=== PATIENT | male | born 1935 | race African-American/Black ===

== ENCOUNTER 2019-02-07 11:08 | Inpatient (IN) | payer MEDICARE, OTHER ==
[~2019-02-07] VITALS: Ht 177.8 cm; Wt 67.4 kg
[2019-02-07] MEDS ORDERED: PIPERACILLIN-TAZOB 3.375GM 100 ML IV ONE (12:30)
[2019-02-07 12:38] LABS: Hematocrit 47.4 % (41.0-53.0); Hemoglobin 15.4 g/dL (13.5-17.5); Mean Corpuscular Hemoglobin 29.3 pg (28.0-32.0); Mean Corpuscular Hgb Conc. 32.5 g/dL (32.0-36.0); Mean Corpuscular Volume 90.2 fL (80.0-100.0); Platelet Count (auto) 277 10^3/uL (140-450); Red Blood Cells 5.26 10^6/uL (4.5-5.90); Red Cell Distribution Width 17.7 % (11.8-14.3); White Blood Cell 5.9 10^3/uL (4.4-10.8)
[2019-02-07 12:42] LABS: Band Neutrophils % (manual) 0; Basophils % (manual) 0 (0.0-2.0); Blast Cells 0; Metamyelocytes % 0; Myelocytes % 0; Promyelocytes % 0; Reactive Lymphocytes 0
[2019-02-07 12:50] LABS: Urine Bacteria NONE SEEN /hpf (None Seen); Urine Blood Negative /uL (Negative); Urine Specific Gravity 1.017 (1.001-1.035); Urine WBC 1 /hpf (0 - 3)
[2019-02-07 13:00] LABS: Albumin 2.1 g/dL (3.4-5.0); Anion Gap 11 (5-15); BUN/Creatinine Ratio 12.9; Blood Urea Nitrogen 13 mg/dL (7-18); Carbon Dioxide 24 mmol/L (21-32); Chloride 104 mmol/L (98-107); GFR African American 91 mL/min; GFR Non-African American 75 mL/min; Glucose 109 mg/dL (74-106); Potassium 3.6 mmol/L (3.5-5.1); Sodium 139 mmol/L (136-145)
[2019-02-07] MEDS ORDERED: TEMAZEPAM 15 MG CAP PO PRN (13:00)
[2019-02-07] MEDS ORDERED: ALBUTEROL SULF 2.5 MG/0.5ML(0.5%) NEB SOLN NEB PRN (13:00)
[2019-02-07] MEDS ORDERED: traMADol HCL 50 MG TAB PO PRN (13:00)
[2019-02-07] MEDS ORDERED: ONDANSETRON HCL 4 MG/2 ML VIAL IV PRN (13:00)
[2019-02-07] MEDS ORDERED: LACTULOSE 20Gm/30ML SOLN PO PRN (13:00)
[2019-02-07] MEDS ORDERED: NITROGLYCERIN 0.4 MG SL TAB SL PRN (13:00)
[2019-02-07] MEDS ORDERED: MORPHINE SULF INJ 2 MG/ML SYRINGE 1ML IV PRN (13:00)
[2019-02-07] MEDS ORDERED: SODIUM CHLORIDE 0.9% 1,000 ML IV ONE (13:00)
[2019-02-07] MEDS ORDERED: ACETAMINOPHEN 500 MG TAB PO PRN (13:00)
[2019-02-07 13:03] LABS: Alanine Aminotransferase 36 U/L (16-61); Alkaline Phosphatase 81 U/L (45-117); Aspartate Aminotransferase 66 U/L (15-37); Bilirubin, Total 0.6 mg/dL (0.2-1.0); Total Protein 7.2 g/dL (6.4-8.2)
[2019-02-07 13:26] LABS: Magnesium 2.1 mg/dL (1.6-2.6)
[2019-02-07] MEDS ORDERED: IOHEXOL 300 MG/ML 100ML BOTTLE IJ ONE (13:44)
--- NOTE | 2019-02-07 13:45 | NUR ---
RECEIVED REPORT FROM JUAN WILDE.
[2019-02-07 13:54] VITALS: BP 97/52
[2019-02-07] MEDS ORDERED: AZITHROMYCIN 500MG/ 250ML 250 ML IV SCH (14:00)
[2019-02-07 14:27] LABS: Eosinophils % (manual) 1 (0-7); Lymphocytes % (manual) 17 (10.0-50.0); Monocytes % (manual) 18 (0-12)
[2019-02-07 17:59] VITALS: BP 143/74
[2019-02-07] MEDS: ALBUTEROL SULF 2.5 MG/0.5ML(0.5%) NEB SOLN NEB SCH (18:00)
[2019-02-07] MEDS: IPRATROPIUM BROM 0.5 MG/2.5ML INH SOL NEB SCH (18:00)
[2019-02-07] MEDS ORDERED: cefTRIAXone 1GM/50ML D5W 50 ML IV SCH (18:00)
[2019-02-07 18:05] VITALS: BP 143/74
--- NOTE | 2019-02-07 19:30 | NUR ---
Opening Shift Note Assumed care of patient, awake and alert. No S/S of distress/SOB or pain. Instructed on POC and to call for assist PRN, will continue to monitor for changes Q1hr and PRN. Bed locked and in lowest position, call light within reach.
--- NOTE | 2019-02-07 20:45 | NUR ---
SPUTUM CX SENT to lab
[2019-02-07 22:00] VITALS: BP 152/80
[2019-02-07] MEDS ORDERED: CEFEPIME HYDROCHLORIDE 2 GM in D5W 5% 50 ML IV SCH (22:00)
[2019-02-07 22:41] VITALS: BP 149/77
[2019-02-08] VITALS (8 sets, daily range): BP systolic 134–155; BP diastolic 61–78
[2019-02-08] MEDS: ALBUTEROL SULF 2.5 MG/0.5ML(0.5%) NEB SOLN NEB SCH ×4 (00:30→19:13)
[2019-02-08] MEDS: IPRATROPIUM BROM 0.5 MG/2.5ML INH SOL NEB SCH ×4 (00:30→19:13)
--- NOTE | 2019-02-08 03:56 | NUR ---
STOOL SAMPLE SENT TO LAB
--- NOTE | 2019-02-08 06:57 | NUR ---
CLOSING NOTE PT awake no s/sx's of distress or sob noted, pt on 2 L nc will endorse report to day RN
--- NOTE | 2019-02-08 07:30 | NUR ---
Opening Shift Note RECEIVED REPORT FROM NOC RN. Assumed care of patient, awake and alert. PATIENT ON OXYGEN AT 2 LPM VIA NASAL CANNULA WITH no S/S of distress/SOB or pain. BED IN LOWEST, LOCKED POSITION WITH SIDERAILS UP x2. Instructed on POC and to call for assist PRN, will continue to monitor for changes Q1hr and PRN.
[2019-02-08] MEDS: SODIUM CHLORIDE 0.9% 1,000 ML IV SCH ×2 (09:00→19:16)
[2019-02-08] MEDS: LEVOFLOXACIN 750MG 150 ML IV SCH (09:38)
[2019-02-08] MEDS: ENOXAPARIN SOD 40 MG/0.4 ML SYRINGE SC SCH (09:38)
--- NOTE | 2019-02-08 10:49 | NUR ---
DR. KEARNS AT BEDSIDE.
[2019-02-08] MEDS: CEFEPIME HYDROCHLORIDE 2 GM in D5W 5% 50 ML IV SCH ×2 (11:26→23:49)
--- NOTE | 2019-02-08 12:05 | NUR ---
WOUND CARE NOTE: Wound care in to see patient per wound care request regarding "lower back and sacral ..." wounds. Patient is 83 years old male with admitting diagnosis of Pneumonia. He has history of A Fib and Htn. Patient is resting in bed in Rm. 218B. He's awake, alert and oriented. Patient is in no stated pain at this time. He's ambulatory and self turn and reposition. His Ruben score is 21. Skin/wound assessment done with the assistance of patient's nurse, JUAN Fry. No open wound noted other than tiny dry scabbed lesions to lower back, area is clean and dry, asymptomatic, left open to air. No pressure injury issue noted. Patient tolerated well. Bed in low position, call braxton on hand, all safety precautions in placed. No further wound care monitoring needed at this time Addendum: 02/08/19 at 1559 by Kaye Hollis RN Amended: Links added.
--- NOTE | 2019-02-08 19:15 | NUR ---
Opening Shift Note Assumed care of patient, awake and alert. No S/S of distress/SOB or pain. Instructed on POC and to call for assist PRN, will continue to monitor for changes Q1hr and PRN.
[2019-02-09] MEDS: IPRATROPIUM BROM 0.5 MG/2.5ML INH SOL NEB SCH ×4 (00:04→18:31)
[2019-02-09] MEDS: ALBUTEROL SULF 2.5 MG/0.5ML(0.5%) NEB SOLN NEB SCH ×4 (00:05→18:32)
[2019-02-09 05:00] VITALS: BP 149/83
[2019-02-09] MEDS: SODIUM CHLORIDE 0.9% 1,000 ML IV SCH ×2 (05:09→15:42)
--- NOTE | 2019-02-09 06:37 | NUR ---
ROUNDS PATIENT UP TO THE RESTROOM. GAIT STEADY, DENIES ANY PAIN OR DISCOMFORT.
--- NOTE | 2019-02-09 07:58 | NUR ---
Opening Shift Note Assumed care of patient, awake and alert, sitting up in bed. No S/S of distress/SOB or pain. Instructed on POC and to call for assist PRN, will continue to monitor for changes Q1hr and PRN.
[2019-02-09 09:00] VITALS: BP 158/76
[2019-02-09] MEDS: LEVOFLOXACIN 750MG 150 ML IV SCH (09:18)
[2019-02-09] MEDS: ENOXAPARIN SOD 40 MG/0.4 ML SYRINGE SC SCH (09:18)
--- NOTE | 2019-02-09 10:25 | NUR ---
Rounding Dr. Genao at bedside.
[2019-02-09] MEDS: CEFEPIME HYDROCHLORIDE 2 GM in D5W 5% 50 ML IV SCH (12:13)
[2019-02-09 13:00] VITALS: BP 147/72
--- NOTE | 2019-02-09 15:29 | NUR ---
Spouse at bedside.
[2019-02-09] MEDS ORDERED: AMLO5TAB13 PO (15:51)
--- NOTE | 2019-02-09 15:58 | NUR ---
Home Medications Medication reconciliation completed. Telephone order received from MD, read back and verified. EMAR updated.
--- NOTE | 2019-02-09 19:10 | NUR ---
Opening Shift Note Received report from day shift RN Theodora, assumed care of patient. Patient awake and alert eating dinner with Gloria at bed side. Denies any distress/SOB or pain. Instructed on POC and to call for assist PRN, will continue to monitor for changes Q1hr and PRN.
[2019-02-09 22:00] VITALS: BP 144/75
[2019-02-09] MEDS: amLODIPine BESYLATE 5 MG TAB PO SCH (22:18)
[2019-02-09 23:30] VITALS: BP 141/84
[2019-02-10] MEDS: ALBUTEROL SULF 2.5 MG/0.5ML(0.5%) NEB SOLN NEB SCH ×4 (00:14→18:52)
[2019-02-10] MEDS: IPRATROPIUM BROM 0.5 MG/2.5ML INH SOL NEB SCH ×4 (00:14→18:52)
[2019-02-10] MEDS: SODIUM CHLORIDE 0.9% 1,000 ML IV SCH ×2 (01:00→12:19)
[2019-02-10 05:00] VITALS: BP 150/71
--- NOTE | 2019-02-10 05:54 | NUR ---
ROUNDS PATIENT AWAKE AND ALERT SITTING UP TO BED SIDE COMMODE, MINIMUM ASSISTANCE NEEDED. DENIES ANY PAIN OR DISCOMFORT. WILL CONTINUE TO MONITOR.
--- NOTE | 2019-02-10 07:20 | NUR ---
Opening Shift Note Assumed care of patient, awake and alert. No S/S of distress/SOB or pain. Instructed on POC and to call for assist PRN, will continue to monitor for changes Q1hr and PRN. Patient to have stress test today.
[2019-02-10 08:00] VITALS: BP 140/77
[2019-02-10] MEDS ORDERED: ADENOSINE 59 MG in GIVE UN-DILUTED 0 ML IV STA (08:35)
[2019-02-10] MEDS: LEVOFLOXACIN 750MG 150 ML IV SCH (09:07)
[2019-02-10] MEDS: ENOXAPARIN SOD 40 MG/0.4 ML SYRINGE SC SCH (09:07)
[2019-02-10 09:22] VITALS: BP 150/71
--- NOTE | 2019-02-10 09:50 | NUR ---
Spouse at bedside.
--- NOTE | 2019-02-10 10:26 | NUR ---
Rounding Dr. Genao at bedside.
[2019-02-10 12:00] VITALS: BP 137/71
[2019-02-10] MEDS: CEFEPIME HYDROCHLORIDE 2 GM in D5W 5% 50 ML IV SCH ×4 (12:19→23:13)
--- NOTE | 2019-02-10 14:36 | NUR ---
Nutrition Assessment/consult Notes please see attached link for complete assessment Est. Needs BW [id number] kcal (25-30kcal/kgBW), 70-91 gms pro (1.0-1.3 gms/kgBW r/t mod hypoalbuminemia). Will continue to monitor pertinent labs and reassess nutrient need prn. Addendum: 02/10/19 at [address] Amended: Links added.
[2019-02-10 15:43] VITALS: BP 167/79
[2019-02-10] MEDS: amLODIPine BESYLATE 5 MG TAB PO SCH (21:21)
[2019-02-10 22:20] VITALS: BP 136/66
[2019-02-11] MEDS: IPRATROPIUM BROM 0.5 MG/2.5ML INH SOL NEB SCH ×4 (00:33→19:08)
[2019-02-11] MEDS: ALBUTEROL SULF 2.5 MG/0.5ML(0.5%) NEB SOLN NEB SCH ×4 (00:33→19:08)
[2019-02-11 05:35] VITALS: BP 138/72
--- NOTE | 2019-02-11 07:23 | NUR ---
Report given to Yovanny Yip to assume care, patient is resting no distress.
[2019-02-11 09:00] VITALS: BP 141/76
[2019-02-11] MEDS: LEVOFLOXACIN 750MG 150 ML IV SCH (10:11)
[2019-02-11] MEDS: ENOXAPARIN SOD 40 MG/0.4 ML SYRINGE SC SCH (10:11)
--- NOTE | 2019-02-11 10:30 | NUR ---
Phone call received from GIOVANI stating that patient has 2nd run of V-tach. notified and EKG ordered.
[2019-02-11 13:02] VITALS: BP 100/53
[2019-02-11 14:42] VITALS: BP 100/53
[2019-02-11] MEDS: CEFEPIME HYDROCHLORIDE 2 GM in D5W 5% 50 ML IV SCH ×2 (15:42→23:45)
--- NOTE | 2019-02-11 16:50 | NUR ---
Discharge Phone call received from Dr. Genao to hold patients discharge for today.
[2019-02-11 17:00] VITALS: BP 142/76
--- NOTE | 2019-02-11 17:04 | NUR ---
assessment Patient is a 83 year old male who is alert and oriented. Prior to admission patient lived home with his and functioned independently until recently after a trip over seas. Patients PCP is Dr Genao. Patient may need a home health for PT on discharge. Patient and Gloria agree to discharge plan home on discharge. Addendum: 02/11/19 at 1706 by Raegan JIMENES Amended: Links added.
--- NOTE | 2019-02-11 17:10 | NUR ---
Discharge Prescription Prescription filled by [facility] and picked up by the patient's .
--- NOTE | 2019-02-11 17:15 | NUR ---
Rex Genao at bedside. NPO after midnight, heart cath 02/12
--- NOTE | 2019-02-11 19:35 | NUR ---
OPENING NOTE REPORT RECEIVED FROM DAY SHIFT RN PATIENT IS A/OX4 RESTING IN BED, NO S/S OF DISTRESS. D/C HELD FOR TODAY, PENDING HEART CATH TOMORROW, PATIENT AWARE OF THAT. POC DISCUSSED, CALL LIGHT WITHIN REACH.
[2019-02-11 21:51] VITALS: BP 135/71
[2019-02-11] MEDS: amLODIPine BESYLATE 5 MG TAB PO SCH (21:53)
[2019-02-12] MEDS: IPRATROPIUM BROM 0.5 MG/2.5ML INH SOL NEB SCH ×4 (00:24→19:47)
[2019-02-12] MEDS: ALBUTEROL SULF 2.5 MG/0.5ML(0.5%) NEB SOLN NEB SCH ×4 (00:24→19:47)
[2019-02-12 05:26] VITALS: BP 140/75
--- NOTE | 2019-02-12 06:36 | NUR ---
CHECKLIST DONE FOR POSSIBLE HEART CATH TODAY PLACED IN HARD CHART
--- NOTE | 2019-02-12 06:36 | NUR ---
CONSENTS CONSENTS FOR HEART CATH NOT SIGNED AT THIS TIME. PATIENT STATES PROCEDURE WAS NOT EXPLAINED BY DOCTOR AND THAT HE HAS "MANY QUESTIONS" ABOUT THE PROCEDURE CONSENTS PRINTED AND PLACED IN HARD CHART MD TO GO OVER PROCEDURE WITH PATIENT BEFORE ANYTHING IS SIGNED
--- NOTE | 2019-02-12 06:57 | NUR ---
CLOSING NOTE PATIENT IS RESTING COMFORTABLY IN BED WATCHING TV. NO S/S OF DISTRESS NOTED PT NPO FOR PENDING HEART CATH TODAY. WILL ENDORSE CARE TO AM SHIFT RN CALL LIGHT WITHIN REACH
[2019-02-12 07:05] LABS: Hematocrit 50.4 % (41.0-53.0); Hemoglobin 16.6 g/dL (13.5-17.5); Mean Corpuscular Hemoglobin 29.8 pg (28.0-32.0); Mean Corpuscular Volume 90.3 fL (80.0-100.0); Platelet Count (auto) 243 10^3/uL (140-450); Red Blood Cells 5.59 10^6/uL (4.5-5.90); Red Cell Distribution Width 17.5 % (11.8-14.3)
[2019-02-12 07:14] LABS: Band Neutrophils % (manual) 0; Basophils % (manual) 0 (0.0-2.0); Blast Cells 0; Metamyelocytes % 0; Myelocytes % 0; Promyelocytes % 0; Reactive Lymphocytes 0
[2019-02-12 07:18] LABS: BUN/Creatinine Ratio 11.1; Calcium 8.9 mg/dL (8.5-10.1)
[2019-02-12 07:25] LABS: INR 1.15 (0.9-1.15); Partial Thromboplastin Time 30.8 sec (23.64-32.05)
[2019-02-12 07:52] LABS: Eosinophils % (manual) 1 (0-7); Lymphocytes % (manual) 29 (10.0-50.0); Monocytes % (manual) 19 (0-12)
--- NOTE | 2019-02-12 08:00 | NUR ---
Opening Shift Note Assumed care of patient, awake, alert and oriented X4. No S/S of distress/SOB or pain. Tele# 27, sinus bradycardia @ 58 bpm. IV to left antecubital, 22 gauge, patent and saline locked. Instructed on POC and to call for assist PRN, verbalized understanding. Bed locked, in lowest position, call light within reach, will continue to monitor for changes Q1hr and PRN.
[2019-02-12] MEDS ORDERED: SODIUM CHLORIDE 0.9% 1,000 ML IV SCH (08:25)
[2019-02-12 09:00] VITALS: BP 131/68
[2019-02-12 09:06] LABS: Hematocrit 47.2 % (41.0-53.0); Hemoglobin 15.7 g/dL (13.5-17.5); Mean Corpuscular Hgb Conc. 33.2 g/dL (32.0-36.0); Mean Corpuscular Volume 90.3 fL (80.0-100.0); Platelet Count (auto) 247 10^3/uL (140-450); Red Blood Cells 5.23 10^6/uL (4.5-5.90); Red Cell Distribution Width 17.7 % (11.8-14.3); White Blood Cell 5.1 10^3/uL (4.4-10.8)
[2019-02-12 09:10] LABS: Band Neutrophils % (manual) 0; Basophils % (manual) 0 (0.0-2.0); Blast Cells 0; Metamyelocytes % 0; Myelocytes % 0; Promyelocytes % 0; Reactive Lymphocytes 0
[2019-02-12 09:24] LABS: INR 1.13 (0.9-1.15); Partial Thromboplastin Time 30.3 sec (23.64-32.05)
[2019-02-12 09:59] LABS: Calcium 8.9 mg/dL (8.5-10.1); Potassium 4.5 mmol/L (3.5-5.1)
[2019-02-12] MEDS: ENOXAPARIN SOD 40 MG/0.4 ML SYRINGE SC SCH (10:00)
[2019-02-12] MEDS: LEVOFLOXACIN 750MG 150 ML IV SCH (10:00)
[2019-02-12 10:01] LABS: BUN/Creatinine Ratio 11.4
[2019-02-12 10:03] LABS: Eosinophils % (manual) 5 (0-7); Lymphocytes % (manual) 26 (10.0-50.0); Monocytes % (manual) 22 (0-12)
--- NOTE | 2019-02-12 10:15 | NUR ---
INSPECTOR MACHINE PARTS Patient taken to clinical lab technologist via bed for procedure, no distress noted upon departure.
[2019-02-12] MEDS: CEFEPIME HYDROCHLORIDE 2 GM in D5W 5% 50 ML IV SCH ×2 (12:00→23:59)
--- NOTE | 2019-02-12 12:30 | NUR ---
Pt not in room during noon vitals. Unable to obtain .
[2019-02-12] MEDS ORDERED: LIDOCAINE 2%HCL (LOCAL ANESTH.) INJ 20ML MDV ONE (12:46)
[2019-02-12] MEDS ORDERED: ANGIOMAX 250 MG VIAL IV ONE (12:57)
[2019-02-12] MEDS ORDERED: SODIUM CHL 0.9% 50 ML ONE (12:57)
[2019-02-12] MEDS ORDERED: fentaNYL CITRATE 100 MCG/2 ML VL ONE (12:57)
[2019-02-12] MEDS ORDERED: MIDAZOLAM HCL 1MG/1ML-2 ML VIAL ONE (12:57)
[2019-02-12] MEDS ORDERED: IOHEXOL 350 MG/ML 100ML IJ ONE (13:30)
[2019-02-12] MEDS ORDERED: ATROPINE SULFATE 1 MG/1 ML VIAL ONE (14:06)
[2019-02-12] MEDS ORDERED: ASPirin 325 MG TAB ONE (14:12)
[2019-02-12] MEDS ORDERED: TICAGRELOR 90 MG TAB ONE (14:12)
[2019-02-12] MEDS ORDERED: NITROGLYCERIN 0.4MG/DOSE SPRAY 4.9GM ONE (14:43)
--- NOTE | 2019-02-12 15:47 | NUR ---
Patient returned from [employer] Referee via bed, s/p L and R heart cath. Right groin access with dressing clean, dry and intact, soft to palpitation, distal pulse strong and regular. Patient has no complaints of pain or discomfort at this time. at bedside updated on plan of care, verbalized understanding.
[2019-02-12 17:00] VITALS: BP 157/84
--- NOTE | 2019-02-12 18:02 | NUR ---
Patient complaining of lower abdominal pain and inability to empty his bladder. 20 ml of clear yellow urine noted in the urinal within 1 hour. Per bladder scanner, patient has 200 ml urine in bladder. Paged Dr Genao and Urologist telecommunications equipment installer to notify. Awaiting return call. Patient medicated with Ultram per PRN order, will continue to monitor.
[2019-02-12] MEDS ORDERED: TAMSULOSIN HYDROCHLORIDE 0.4 MG CAP PO ONE (18:15)
[2019-02-12] MEDS ORDERED: LIDOCAINE HCL 2% TOP JELLY 5ML TOP ONE (18:15)
--- NOTE | 2019-02-12 18:15 | NUR ---
Primitivo Valenzuela, SUDARSHAN and Dr Fry with Urology returned call. Notified of patients inability to empty bladder, new orders received and followed through. Patient and at bedside updated on plan of care, verbalized understanding. Awaiting materials management to bring 18 G Coude catheter.
--- NOTE | 2019-02-12 18:50 | NUR ---
Silver catheter insertion Patient assessed and determined to be in need of Silver catheter. Order obtained from Dr Ang MD. Patient educated on catheter and reason for insertion. All questions answered. Silver catheter 18 gauge Malay Coude catheter inserted with clean sterile technique. Patient tolerated well. 150 ml of clear, yellow urine drained immediately. Patient verbalizing decrease in abdominal discomfort immediately.
--- NOTE | 2019-02-12 19:25 | NUR ---
Care endorsed to JUAN Lucas, night nurse.
--- NOTE | 2019-02-12 20:12 | NUR ---
Emptied out 1150 mls of yellow urine from recio catheter. Patient does not report any new pain in his lower abdomen. Bladder is no longer distended. Will continue to monitor.
--- NOTE | 2019-02-12 21:12 | NUR ---
Patient has had increased bleeding from cath site. Moderate-large amount of blood noted to have soaked into gauze dressing. Manual pressure applied for 20 minutes. Bleeding noted to have stopped. No further soiling of dressing with blood. Patient reports no pain in his chest or in the right lower extremity. Pulses good and strong below cath site. Skin warm to touch. Vitals are all WNL. Will continue to monitor. Addendum: 02/13/19 at 0602 by JUSTIN RICHARDSON RN Approximately 60% of gauze is now soiled in blood. Drainage circled.
[2019-02-12] MEDS: TICAGRELOR 90 MG TAB PO SCH (21:47)
[2019-02-12] MEDS: amLODIPine BESYLATE 5 MG TAB PO SCH (21:48)
[2019-02-12 22:00] VITALS: BP 124/70
--- NOTE | 2019-02-12 22:42 | NUR ---
Only scant new blood noted around cath site. Patient reports no symptoms. Pulses strong below site. Extremity warm to touch. Will continue to monitor.
--- NOTE | 2019-02-13 00:20 | NUR ---
Respiratory note: RN AT BEDSIDE WITH PATIENT AT THIS TIME. PT STATED HE FELT OK AND DIDN'T NEED A BREATHING TREATMENT AT THIS TIME. PT RESTING COMFORTABLY IN BED. NO RESPIRATORY DISTRESS NOTED. RN WILL PAGE IF PT NEEDS A MED NEB TX. WILL CONTINUE TO MONITOR.
--- NOTE | 2019-02-13 00:42 | NUR ---
At approximately 0000, I came in to assess the patient and discovered that the dressing surrounding the patient's heart cath site was completely soiled in blood. Charge nurse Jania helped me change the dressing. Jania and I traded placing pressure on the site for 30 minutes. A small raised lump was noticed on the right side of the incision site. Pressure was placed there as well. Small bleeding noted from site while providing pressure. Vitals: BP: 124/65 with MAP of 87, HR: 65, RR: 19, O2 saturation: 98% on RA, Temp: 98.7. Patient reports no chest pain or pain at site. Pulses strong in dorsalis pedis of affected leg. Ice packs placed over site after providing pressure. Will monitor in one hour.
--- NOTE | 2019-02-13 01:30 | NUR ---
Approximately 40% of the new gauze has been saturated with blood. Drainage circled. Pressure reapplied for 10 minutes. Will continue to monitor.
--- NOTE | 2019-02-13 02:42 | NUR ---
Dressing is saturated 55%. Will continue to monitor.
--- NOTE | 2019-02-13 04:12 | NUR ---
No new bleeding from site noted at this time.
[2019-02-13 05:28] VITALS: BP 127/64
--- NOTE | 2019-02-13 05:53 | NUR ---
Site began bleeding again. Dressing changed once more after becoming nearly completely soiled with blood. Gauze placed over site and covered with tegaderm. Direct pressure applied for 30 minutes. Current vitals: BP: 127/64, HR: 71, RR: 20, O2 saturation: 99% on 2 l/min NC. Site is currently clean, dry, and intact after applying direct pressure. Patient states he is asymptomatic. Lower extremity distal to site is warm and normal color with strong pulses in the dorsalis pedis. Called and left a message for on-call over short and damage clerk, Dr. Carpenter. Awaiting call back.
[2019-02-13 06:45] LABS: Basophils # (auto) 0 uL; Basophils % (auto) 0.4 % (0.0-2.0); Eosinophils # (auto) 0.1 uL; Eosinophils % (auto) 1.2 % (0.0-7.0); Hematocrit 46.6 % (41.0-53.0); Hemoglobin 15.5 g/dL (13.5-17.5); Lymphocytes # (auto) 1.1 uL; Lymphocytes % (auto) 17.7 % (10.0-50.0); Mean Corpuscular Hemoglobin 29.9 pg (28.0-32.0); Mean Corpuscular Hgb Conc. 33.4 g/dL (32.0-36.0); Mean Corpuscular Volume 89.5 fL (80.0-100.0); Monocytes % (auto) 15.7 % (0.0-12.0); Nucleated Red Blood Cells % 0.1 %; Platelet Count (auto) 229 10^3/uL (140-450); Red Cell Distribution Width 17.4 % (11.8-14.3); White Blood Cell 6.1 10^3/uL (4.4-10.8)
[2019-02-13] MEDS: IPRATROPIUM BROM 0.5 MG/2.5ML INH SOL NEB SCH ×4 (06:55→19:15)
[2019-02-13] MEDS: ALBUTEROL SULF 2.5 MG/0.5ML(0.5%) NEB SOLN NEB SCH ×4 (06:55→19:15)
[2019-02-13 07:00] LABS: Potassium 4.2 mmol/L (3.5-5.1)
[2019-02-13 07:25] LABS: BUN/Creatinine Ratio 15.3
[2019-02-13 08:23] VITALS: BP 127/64
[2019-02-13 09:11] VITALS: BP 132/71
[2019-02-13] MEDS: LEVOFLOXACIN 750MG 150 ML IV SCH (09:24)
[2019-02-13] MEDS: TICAGRELOR 90 MG TAB PO SCH ×2 (09:25→22:00)
[2019-02-13] MEDS: ASPirin 81 mg TAB PO SCH (09:25)
--- NOTE | 2019-02-13 11:44 | NUR ---
PT SEEN BY DR. URMILA KEARNS MADE AWARE PT'S RIGHT GROIN INCISION WAS BLEEDING AND BRIDGE PAINTER HELPER NURSE CHANGED THE DRESSING 4X. DR. KEARNS ORDERED TO CHANGE THE DRESSING AND MONITOR. PER DR. KEARNS PT CAN GO HOME TODAY WITH GARCIA CATHETER.
--- NOTE | 2019-02-13 12:40 | NUR ---
POST OP DRESSING ON RIGHT GROIN IS BLEEDING, DRESSING CHANGED, DR. KEARNS AT BEDSIDE AND ORDERED TO MONITOR FOR AN HOUR.
[2019-02-13 13:02] VITALS: BP 112/73
--- NOTE | 2019-02-13 13:40 | NUR ---
NOTED DRESSING SOAKED WITH BLOOD, DR. KEARNS MADE AWARE, HE ORDERED ULTRASOUND OF THE RIGHT GROIN TO R/O ANEURYSM.
--- NOTE | 2019-02-13 14:20 | NUR ---
DR. KEARNS ORDERED TO HOLD THE DISCHARGE.
--- NOTE | 2019-02-13 14:25 | NUR ---
DR. KEARNS ORDERED TO APPLY VILLALTA BAG OVER THE DRESSING AND APPLY KNEE IMMOBILIZER TO RIGHT KNEE.
--- NOTE | 2019-02-13 14:29 | NUR ---
KNEE IMMOBILIZER SPOKE WITH [facility], PER [facility] THEY HAVE NO ACCESS FOR KNEE IMMOBILIZER, ORTHOPEDIC OFFICE IS CLOSE. DR. KEARNS IS AWARE, HE SAID TO INSTRUCT PT TO KEEP HIS LEG STRAIGHT, PT VERBALIZED UNDERSTANDING.
--- NOTE | 2019-02-13 16:19 | NUR ---
POST OP DRESSING SOAKED WITH BLOOD, DRESSING CHANGED, SAND BAG APPLIED OVER THE DRESSING, LEG KEPT STRAIGHT.
[2019-02-13 17:41] VITALS: BP 137/70
--- NOTE | 2019-02-13 17:46 | NUR ---
POST-OP DRESSING SOAKED WITH BLOOD, DRESSING CHANGED, SAND BAG APPLIED OVER THE DRESSING.
--- NOTE | 2019-02-13 19:20 | NUR ---
Opening Shift Note Received report from mabel Head RN. Assumed care of patient, awake and alert x4 No S/S of distress/SOB or pain. Family at bedside. Bed is in lowest position and locked. Call light within reach. Board updated. Tele box number matches monitor and leads are in correct placement. Instructed on POC and to call for assist PRN, will continue to monitor for changes Q1hr and PRN.
[2019-02-13] MEDS: amLODIPine BESYLATE 5 MG TAB PO SCH (22:12)
[2019-02-13 22:50] VITALS: BP 113/72
[2019-02-14] MEDS: IPRATROPIUM BROM 0.5 MG/2.5ML INH SOL NEB SCH ×3 (00:06→11:41)
[2019-02-14] MEDS: ALBUTEROL SULF 2.5 MG/0.5ML(0.5%) NEB SOLN NEB SCH ×3 (00:06→11:41)
--- NOTE | 2019-02-14 03:30 | NUR ---
Report given to Virgilio. Patient is resting in bed with eyes closed, no distress noted and patient denies pain.
--- NOTE | 2019-02-14 03:31 | NUR ---
OPENING NOTE RECEIVED REPORT FROM NIGHTSHIFT RN. ASSUMING ROLE OF CARE OF PATIENT AT THIS TIME. PATIENT AWAKE AND RESTING COMFORTABLY. PATIENT EDUCATED ON CHANGE IN CARE AND PATIENT VERBALIZED UNDERSTANDING. PATIENT REQUESTING MEDICINE TO HELP HIM SLEEP. PATIENT ALSO STATES PAIN AND WILL BE MEDICATED PER PAIN PROTOCOL AVAILABLE. DRESSING INSPECTED SHOWING NO FURTHER DRAINAGE FROM INCISION SITE AT THIS TIME. BED LOWERED, CALL LIGHT WITHIN REACH, AND PATIENT WILL BE ROUNDED ON EVERY HOUR AND NEEDED.
[2019-02-14 05:27] VITALS: BP 120/62
--- NOTE | 2019-02-14 08:15 | NUR ---
DR. KEARNS AT BEDSIDE HE ORDERED, PT CAN WALK AND WILL OBSERVE FOR SIGNS OF BLEEDING.
[2019-02-14 08:33] LABS: Hemoglobin 14.6 g/dL (13.5-17.5); Mean Corpuscular Hemoglobin 29.5 pg (28.0-32.0); Mean Corpuscular Hgb Conc. 33.2 g/dL (32.0-36.0); Mean Corpuscular Volume 88.8 fL (80.0-100.0); Platelet Count (auto) 181 10^3/uL (140-450); Red Blood Cells 4.95 10^6/uL (4.5-5.90); White Blood Cell 5.1 10^3/uL (4.4-10.8)
--- NOTE | 2019-02-14 08:45 | NUR ---
PT WALKED INSIDE THE ROOM, NO FURTHER BLEEDING NOTED ON THE DRESSING, WILL CONTINUE TO MONITOR.
[2019-02-14 09:00] VITALS: BP 110/56
[2019-02-14 09:07] LABS: Band Neutrophils % (manual) 0; Basophils % (manual) 0 (0.0-2.0); Blast Cells 0; Metamyelocytes % 0; Myelocytes % 0; Promyelocytes % 0
[2019-02-14] MEDS: TICAGRELOR 90 MG TAB PO SCH (09:23)
[2019-02-14] MEDS: ASPirin 81 mg TAB PO SCH (09:23)
[2019-02-14] MEDS ORDERED: LEVOFLOXACIN 250 MG TAB PO SCH (10:00)
--- NOTE | 2019-02-14 12:55 | NUR ---
Pt seen by DR. Genao, no further bleeding noted on the dressing, per Dr. Genao pt is okay to go home. Pt will go home with recio catheter connected to leg bag.
--- NOTE | 2019-02-14 13:02 | NUR ---
Pt educated on how to drain his recio catheter, demonstration done on how to drain and how to take care of the recio catheter. Pt understood and verbalized understanding.
--- NOTE | 2019-02-14 13:20 | NUR ---
Discharge instructions given as ordered. Encourage to follow up with Dr. Genao on February 25 at 3:15pm, Dr. Dank Fry on March 06 at 9:45am as instructed. All questions and concerns addressed. Patient verbalized understanding. Medication reconciliation form completed and copy given to patient. IV removed with catheter intact, pressure dressing applied, discharged with recio catheter connected to leg bag as ordered. Telemetry unit returned to ICU. Patient taken to vehicle via wheelchair with all personal belongings, accompanied by staff and family member. No distress noted at time of departure.
[2019-02-14 14:43] LABS: Eosinophils % (manual) 2 (0-7); Lymphocytes % (manual) 22 (10.0-50.0); Monocytes % (manual) 12 (0-12); Reactive Lymphocytes 2
[2019-02-16] MEDS ORDERED: ASPI81TA27 PO (23:31)
[2019-02-16] MEDS ORDERED: CLOP75TA28 PO (23:31)
[2019-02-16] MEDS ORDERED: ATO40T PO (23:31)
[2019-02-16] MEDS ORDERED: LEVO750T64 PO (23:31)
== END 2019-02-14 14:11 | disposition home or self-care (01) | DRG 246 ==
LOC: ER 11:08 → TELE 11:09 → TELE-CENTR 17:33
PROVIDERS: ADMIT Internal Medicine; ATTEND Internal Medicine
PROC: 4A023N8 Measurement of Cardiac Sampling and Pressure, Bilateral, Percutaneous Approach (ICD-10-PCS; principal; 2019-02-12)
PROC: B2111ZZ Fluoroscopy of Multiple Coronary Arteries using Low Osmolar Contrast (ICD-10-PCS; 2019-02-12)
PROC: B2151ZZ Fluoroscopy of Left Heart using Low Osmolar Contrast (ICD-10-PCS; 2019-02-12)
PROC: 027034Z Dilation of Coronary Artery, One Artery with Drug-eluting Intraluminal Device, Percutaneous Approach (ICD-10-PCS; 2019-02-12)
DX: I25.10 Atherosclerotic heart disease of native coronary artery without angina pectoris (principal); J18.1 Lobar pneumonia, unspecified organism; R04.2 Hemoptysis; R31.9 Hematuria, unspecified; L89.102 Pressure ulcer of unspecified part of back, stage 2; Z87.11 Personal history of peptic ulcer disease; N28.1 Cyst of kidney, acquired; K40.90 Unilateral inguinal hernia, without obstruction or gangrene, not specified as recurrent; N40.1 Benign prostatic hyperplasia with lower urinary tract symptoms; R35.0 Frequency of micturition; I11.0 Hypertensive heart disease with heart failure; I70.0 Atherosclerosis of aorta; I08.0 Rheumatic disorders of both mitral and aortic valves; I50.9 Heart failure, unspecified; I48.91 Unspecified atrial fibrillation; R33.8 Other retention of urine; Z87.891 Personal history of nicotine dependence; Z90.49 Acquired absence of other specified parts of digestive tract; Z95.5 Presence of coronary angioplasty implant and graft
CPT/HCPCS: 36415; 71045; 71046; 71250; 74177; 76775; 76881; 78452; 80048; 80053; 80061; 81001; 82270; 82378; 82550; 83036; 83520; 83605; 83735; 83880; 84154; 84443; 84484; 85007; 85025; 85027; 85610; 85652; 85730; 86141; 86256; 86606; 86850; 86900; 86901; 87040; 87070; 87077; 87186; 87205; 92928; 93005; 93017; 93306; 93458; 94640; 99152; C1874; C1887; G0378; J0153; J0461; J1956; J2250; J2543; J7060

== ENCOUNTER → 2019-03-20 | Outpatient (CLI) | payer BC, MEDICARE ==
[~2019-03-20] MED LIST: AMLO5TAB15 PO; ASPI-404 PO; ATO40T PO; CLOP75TA28 PO; LEVO750T64 PO
== END | disposition home or self-care (01) ==
LOC: LAB 14:26
PROVIDERS: ATTEND Urology
DX: N40.0 Benign prostatic hyperplasia without lower urinary tract symptoms (principal); R31.0 Gross hematuria; R33.9 Retention of urine, unspecified
CPT/HCPCS: 84153; 84154

== ENCOUNTER → 2019-05-13 | Outpatient (CLI) | payer BC, MEDICARE ==
[2019-05-13 13:47] LABS: BUN/Creatinine Ratio 11.9; Calcium 8.5 mg/dL (8.5-10.1); Potassium 4.1 mmol/L (3.5-5.1)
== END | disposition home or self-care (01) ==
LOC: LAB 13:10
PROVIDERS: ATTEND Internal Medicine
DX: E78.5 Hyperlipidemia, unspecified (principal); I10 Essential (primary) hypertension
CPT/HCPCS: 36415; 80048

== ENCOUNTER → 2019-06-17 | Outpatient (CLI) | payer BC, MEDICARE ==
[2019-06-17 11:29] LABS: BUN/Creatinine Ratio 10.1; Calcium 8.7 mg/dL (8.5-10.1); Potassium 4.2 mmol/L (3.5-5.1)
== END | disposition home or self-care (01) ==
LOC: LAB 10:38
PROVIDERS: ATTEND Urology
DX: N40.0 Benign prostatic hyperplasia without lower urinary tract symptoms (principal); R31.0 Gross hematuria; R33.9 Retention of urine, unspecified; I11.9 Hypertensive heart disease without heart failure; Z87.891 Personal history of nicotine dependence; Z98.890 Other specified postprocedural states
CPT/HCPCS: 36415; 80048; 84153

== ENCOUNTER → 2020-06-26 | Outpatient (CLI) | payer MEDICARE, BC ==
[~2020-06-26] MED LIST changes: -ASPI-404 PO; +ASPI-543 PO
[2020-06-26 13:55] LABS: BUN/Creatinine Ratio 9.5; Calcium 9.1 mg/dL (8.5-10.1); Potassium 4.1 mmol/L (3.5-5.1)
== END | disposition home or self-care (01) ==
LOC: LAB 11:54
PROVIDERS: ATTEND Urology
DX: N40.1 Benign prostatic hyperplasia with lower urinary tract symptoms (principal); N39.41 Urge incontinence
CPT/HCPCS: 36415; 80048; 84153

== ENCOUNTER → 2020-07-17 | Outpatient (CLI) | payer MEDICARE, BC ==
[2020-07-17 10:35] LABS: Hematocrit 43.7 % (41.0-53.0); Hemoglobin 14.2 g/dL (13.5-17.5); Mean Corpuscular Hemoglobin 29.5 pg (28.0-32.0); Mean Corpuscular Hgb Conc. 32.5 g/dL (32.0-36.0); Mean Corpuscular Volume 90.9 fL (80.0-100.0); Platelet Count (auto) 120 10^3/uL (140-450); Red Blood Cells 4.81 10^6/uL (4.5-5.90); Red Cell Distribution Width 17.3 % (11.8-14.3)
[2020-07-17 10:43] LABS: Basophils % (manual) 0 (0.0-2.0); Blast Cells 0; Metamyelocytes % 0; Myelocytes % 0; Promyelocytes % 0; Reactive Lymphocytes 0
[2020-07-17 11:04] LABS: Albumin 3.6 g/dL (3.4-5.0); Calcium 9.2 mg/dL (8.5-10.1); Potassium 3.7 mmol/L (3.5-5.1)
[2020-07-17 11:08] LABS: BUN/Creatinine Ratio 8.3; Bilirubin, Total 0.7 mg/dL (0.2-1.0); Total Protein 8.4 g/dL (6.4-8.2)
[2020-07-17 12:34] LABS: Band Neutrophils % (manual) 1; Eosinophils % (manual) 2 (0-7); Lymphocytes % (manual) 29 (10.0-50.0); Monocytes % (manual) 16 (0-12)
[2020-07-19 10:25] LABS: Hepatitis B Surface Antibody Positive
[2020-07-19 10:57] LABS: Hepatitis A Total Antibody Positive
[2020-07-19 14:23] LABS: Hepatitis B Core Total AB Positive; Hepatitis B Surface Antigen Negative (Negative); Hepatitis C Antibody Positive (Negative)
== END | disposition home or self-care (01) ==
LOC: LAB 10:11
PROVIDERS: ATTEND Internal Medicine
DX: I25.10 Atherosclerotic heart disease of native coronary artery without angina pectoris (principal); B18.2 Chronic viral hepatitis C; I11.9 Hypertensive heart disease without heart failure; E78.5 Hyperlipidemia, unspecified; Z79.899 Other long term (current) drug therapy
CPT/HCPCS: 36415; 80053; 80061; 82274; 82306; 83036; 84443; 85007; 85027; 86704; 86706; 86708; 86803; 87340

== ENCOUNTER → 2020-12-06 | Outpatient (CLI) | payer MEDICARE, BC ==
[~2020-12-06] MED LIST changes: +AMLO-489 PO; -AMLO5TAB15 PO
[2020-12-06 13:59] LABS: Albumin 3.6 g/dL (3.4-5.0)
[2020-12-06 14:02] LABS: Bilirubin, Direct 0.2 mg/dL (0-0.2); Bilirubin, Total 0.4 mg/dL (0.2-1.0); Total Protein 8.2 g/dL (6.4-8.2)
== END | disposition home or self-care (01) ==
LOC: LAB 12:51
DX: K70.30 Alcoholic cirrhosis of liver without ascites (principal); B19.20 Unspecified viral hepatitis C without hepatic coma
CPT/HCPCS: 36415; 80076

== ENCOUNTER → 2020-12-09 | Outpatient (CLI) | payer MEDICARE, BC | END | disposition home or self-care (01) | LOC: XYW 11:02 | PROVIDERS: ATTEND Internal Medicine | DX: I08.2 Rheumatic disorders of both aortic and tricuspid valves (principal); I11.0 Hypertensive heart disease with heart failure | CPT/HCPCS: 93306 ==

== ENCOUNTER → 2021-02-24 | Outpatient (CLI) | payer MEDICARE, BC ==
[~2021-02-24] VITALS: Ht 175.3 cm; Wt 63.5 kg
[~2021-02-24] MED LIST changes: +ADENOSINE 53 MG in GIVE UN-DILUTED 0 ML IV STA
== END | disposition home or self-care (01) ==
LOC: XY 07:50
PROVIDERS: ATTEND Internal Medicine
DX: I25.10 Atherosclerotic heart disease of native coronary artery without angina pectoris (principal)
CPT/HCPCS: 78452; 93017; A9500; J0153

== ENCOUNTER → 2021-04-29 | Outpatient (CLI) | payer MEDICARE, BC ==
[~2021-04-29] MED LIST changes: -ADENOSINE 53 MG in GIVE UN-DILUTED 0 ML IV STA; +AMLO5CAP40 PO; +FERR65TA12 PO; +FINA5TAB4 PO; +OXYB5TAB24 PO; +TAMS0.4C36 PO
[2021-04-29 10:07] LABS: Hematocrit 44.1 % (41.0-53.0); Hemoglobin 14.3 g/dL (13.5-17.5); Mean Corpuscular Hemoglobin 28.7 pg (28.0-32.0); Mean Corpuscular Hgb Conc. 32.5 g/dL (32.0-36.0); Mean Corpuscular Volume 88.3 fL (80.0-100.0); Red Cell Distribution Width 16.7 % (11.8-14.3); White Blood Cell 4.6 10^3/uL (4.4-10.8)
[2021-04-29 10:10] LABS: Band Neutrophils % (manual) 0; Basophils % (manual) 0 (0.0-2.0); Blast Cells 0; Metamyelocytes % 0; Myelocytes % 0; Promyelocytes % 0; Reactive Lymphocytes 0
[2021-04-29 10:15] LABS: INR 1.17 (0.9-1.15); Partial Thromboplastin Time 28.8 sec (23.6-33.0)
[2021-04-29 10:28] LABS: Albumin 3.8 g/dL (3.4-5.0); Calcium 9.4 mg/dL (8.5-10.1); Potassium 4.1 mmol/L (3.5-5.1)
[2021-04-29 10:33] LABS: BUN/Creatinine Ratio 8.7; Bilirubin, Total 0.5 mg/dL (0.2-1.0); Total Protein 8.6 g/dL (6.4-8.2)
[2021-04-29 10:46] LABS: Eosinophils % (manual) 5 (0-7); Lymphocytes % (manual) 40 (10.0-50.0); Monocytes % (manual) 21 (0-12)
[2021-04-29 11:07] LABS: Urine Bacteria FEW /hpf (None Seen); Urine Blood Negative /uL (Negative); Urine Hyaline Cast FEW /lpf (0 - 2); Urine Mucus FEW (None Seen); Urine Specific Gravity 1.017 (1.001-1.035); Urine Sperm PRESENT /hpf (None Seen); Urine WBC 2 /hpf (0 - 3)
== END | disposition home or self-care (01) ==
LOC: LAB 09:37
PROVIDERS: ATTEND Internal Medicine
DX: Z01.812 Encounter for preprocedural laboratory examination (principal); I50.9 Heart failure, unspecified
CPT/HCPCS: 36415; 80053; 81001; 85007; 85027; 85610; 85730

== ENCOUNTER 2021-05-03 07:14 | Day surgery (SDC) | payer MEDICARE, BC ==
[~2021-05-03] VITALS: Ht 177.8 cm; Wt 65.8 kg
[~2021-05-03 07:14] MED LIST changes: -AMLO-489 PO; -LEVO750T64 PO
[2021-05-03] MEDS ORDERED: LIDOCAINE 2%HCL (LOCAL ANESTH.) INJ 20ML MDV ONE (09:25)
[2021-05-03] MEDS ORDERED: IOHEXOL 350 MG/ML 100ML IJ ONE (09:25)
[2021-05-03] MEDS ORDERED: fentaNYL CITRATE 100 MCG/2 ML VL ONE (09:27)
[2021-05-03] MEDS ORDERED: ANGIOMAX 250 MG VIAL IV ONE (09:27)
[2021-05-03] MEDS ORDERED: MIDAZOLAM HCL 2MG/2ML 2ml VIAL (1mg/ml) ONE (09:28)
[2021-05-03] MEDS ORDERED: SODIUM CHL 0.9% 0 ML ONE (09:28)
[2021-05-03] MEDS ORDERED: VERAPAMIL 2.5MG/ML INJ 2ML VIAL IV ONE (09:33)
[2021-05-03] MEDS ORDERED: HEPARIN SODIUM (PORCINE) 5000 UNITS/ML 1ML VIAL ONE (09:33)
[2021-05-03] MEDS ORDERED: hydrALAZINE HCL 20 MG/ML VL ONE (09:36)
[2021-05-03] MEDS ORDERED: NITROGLYCERIN 5MG/ML 10ML VIAL IV ONE (09:37)
[2021-05-03] MEDS ORDERED: ATROPINE SULF 1 MG/10ml SYR ONE (09:54)
== END 2021-05-03 12:30 | disposition home or self-care (01) ==
LOC: CATH 07:14
PROVIDERS: ATTEND Internal Medicine
DX: I25.10 Atherosclerotic heart disease of native coronary artery without angina pectoris (principal); I10 Essential (primary) hypertension; E78.5 Hyperlipidemia, unspecified; Z87.891 Personal history of nicotine dependence; Z79.82 Long term (current) use of aspirin; Z20.822 Contact with and (suspected) exposure to COVID-19; Z79.899 Other long term (current) drug therapy; Z86.73 Personal history of transient ischemic attack (TIA), and cerebral infarction without residual deficits; Z95.5 Presence of coronary angioplasty implant and graft; Z68.20 Body mass index [BMI] 20.0-20.9, adult
CPT/HCPCS: 93458; C1887; C1894; J0360; J1644; J2250; J3010; J3490; J7030; Q9967; U0003; 99152

== ENCOUNTER → 2021-05-30 | Outpatient (CLI) | payer MEDICARE, BC ==
[2021-05-30 13:52] LABS: Hematocrit 41.7 % (41.0-53.0); Hemoglobin 13.3 g/dL (13.5-17.5); Mean Corpuscular Hemoglobin 28.1 pg (28.0-32.0); Mean Corpuscular Hgb Conc. 31.8 g/dL (32.0-36.0); Mean Corpuscular Volume 88.2 fL (80.0-100.0); Red Blood Cells 4.73 10^6/uL (4.5-5.90); Red Cell Distribution Width 16.8 % (11.8-14.3); White Blood Cell 4.2 10^3/uL (4.4-10.8)
[2021-05-30 14:03] LABS: Band Neutrophils % (manual) 0; Basophils % (manual) 0 (0.0-2.0)
[2021-05-30 14:04] LABS: Blast Cells 0; Metamyelocytes % 0; Myelocytes % 0; Promyelocytes % 0; Reactive Lymphocytes 0
[2021-05-30 14:06] LABS: Potassium 4.3 mmol/L (3.5-5.1)
[2021-05-30 14:13] LABS: Albumin 3.3 g/dL (3.4-5.0); BUN/Creatinine Ratio 10.6; Bilirubin, Total 0.4 mg/dL (0.2-1.0); Calcium 9.3 mg/dL (8.5-10.1); Total Protein 7.9 g/dL (6.4-8.2)
[2021-05-30 15:54] LABS: Eosinophils % (manual) 4 (0-7); Lymphocytes % (manual) 36 (10.0-50.0); Monocytes % (manual) 15 (0-12)
== END | disposition home or self-care (01) ==
LOC: LAB 13:20
PROVIDERS: ATTEND Internal Medicine
DX: I10 Essential (primary) hypertension (principal); E78.5 Hyperlipidemia, unspecified; Z79.899 Other long term (current) drug therapy
CPT/HCPCS: 36415; 80053; 80061; 82306; 85007; 85027

== ENCOUNTER → 2021-10-19 | Outpatient (CLI) | payer MEDICARE, BC ==
[2021-10-19 08:53] LABS: Hematocrit 41.1 % (41.0-53.0); Hemoglobin 13.3 g/dL (13.5-17.5); Mean Corpuscular Hemoglobin 28.2 pg (28.0-32.0); Mean Corpuscular Hgb Conc. 32.3 g/dL (32.0-36.0); Mean Corpuscular Volume 87.4 fL (80.0-100.0); Red Cell Distribution Width 16.1 % (11.8-14.3); White Blood Cell 4.6 10^3/uL (4.4-10.8)
[2021-10-19 09:06] LABS: INR 1.19 (0.9-1.15); Partial Thromboplastin Time 29.5 sec (23.6-33.0)
[2021-10-19 09:12] LABS: Albumin 3.4 g/dL (3.4-5.0); Calcium 9.1 mg/dL (8.5-10.1)
[2021-10-19 09:17] LABS: Band Neutrophils % (manual) 0; Basophils % (manual) 0 (0.0-2.0); Blast Cells 0; Metamyelocytes % 0; Myelocytes % 0; Promyelocytes % 0; Reactive Lymphocytes 0
[2021-10-19 09:18] LABS: BUN/Creatinine Ratio 8.5; Bilirubin, Total 0.6 mg/dL (0.2-1.0); Total Protein 7.7 g/dL (6.4-8.2)
[2021-10-19 11:32] LABS: Eosinophils % (manual) 4 (0-7); Lymphocytes % (manual) 29 (10.0-50.0); Monocytes % (manual) 35 (0-12)
== END | disposition home or self-care (01) ==
LOC: LAB 08:17
DX: K70.30 Alcoholic cirrhosis of liver without ascites (principal)
CPT/HCPCS: 36415; 80053; 85007; 85027; 85610; 85730

== ENCOUNTER → 2021-11-21 | Outpatient (CLI) | payer MEDICARE, BC ==
[~2021-11-21] MED LIST changes: +AMIO200T33 PO; +APIX2.5T PO
[2021-11-21 14:17] LABS: Hemoglobin 13.7 g/dL (13.5-17.5)
[2021-11-21 14:30] LABS: Hematocrit 41.4 % (41.0-53.0); Mean Corpuscular Hemoglobin 28.7 pg (28.0-32.0); Mean Corpuscular Hgb Conc. 33.1 g/dL (32.0-36.0); Mean Corpuscular Volume 86.9 fL (80.0-100.0); Red Blood Cells 4.76 10^6/uL (4.5-5.90); White Blood Cell 4.6 10^3/uL (4.4-10.8)
[2021-11-21 14:36] LABS: Albumin 3.3 g/dL (3.4-5.0); Calcium 8.8 mg/dL (8.5-10.1); Potassium 3.8 mmol/L (3.5-5.1)
[2021-11-21 14:40] LABS: BUN/Creatinine Ratio 8.2; Bilirubin, Total 0.6 mg/dL (0.2-1.0); Total Protein 7.7 g/dL (6.4-8.2)
[2021-11-21 15:28] LABS: Band Neutrophils % (manual) 0; Basophils % (manual) 0 (0.0-2.0); Blast Cells 0; Metamyelocytes % 0; Monocytes % (manual) 0 (0-12); Myelocytes % 0; Promyelocytes % 0
[2021-11-21 16:52] LABS: Eosinophils % (manual) 2 (0-7); Lymphocytes % (manual) 45 (10.0-50.0); Reactive Lymphocytes 4
== END | disposition home or self-care (01) ==
LOC: LAB 13:48
PROVIDERS: ATTEND Student in an Organized Health Care Education/Training Program
DX: I10 Essential (primary) hypertension (principal); E78.5 Hyperlipidemia, unspecified; Z79.899 Other long term (current) drug therapy
CPT/HCPCS: 36415; 80053; 80061; 82306; 83036; 84443; 85007; 85027

== ENCOUNTER → 2022-01-16 | Outpatient (CLI) | payer MEDICARE, BC ==
[~2022-01-16] MED LIST changes: -ASPI-543 PO
== END | disposition home or self-care (01) ==
LOC: LAB 08:41
PROVIDERS: ATTEND Urology
DX: N40.1 Benign prostatic hyperplasia with lower urinary tract symptoms (principal)
CPT/HCPCS: 84153

== ENCOUNTER → 2022-03-08 | Outpatient (CLI) | payer MEDICARE, BC ==
[2022-03-08 10:25] LABS: Potassium 3.9 mmol/L (3.5-5.1)
[2022-03-08 10:32] LABS: Albumin 3.3 g/dL (3.4-5.0); BUN/Creatinine Ratio 9.9; Bilirubin, Total 0.5 mg/dL (0.2-1.0); Calcium 8.5 mg/dL (8.5-10.1); Total Protein 7.8 g/dL (6.4-8.2)
[2022-03-08 10:37] LABS: Folate (Folic Acid) 8.41 ng/mL (5.38-24)
[2022-03-09 07:07] LABS: RPR Non Reactive (Non Reactive)
== END | disposition home or self-care (01) ==
LOC: LAB 09:37
PROVIDERS: ATTEND Internal Medicine
DX: D64.9 Anemia, unspecified (principal); I10 Essential (primary) hypertension; Z79.899 Other long term (current) drug therapy
CPT/HCPCS: 36415; 80053; 82306; 82607; 82746; 86592

== ENCOUNTER → 2022-03-16 | Outpatient (CLI) | payer MEDICARE, BC ==
[2022-03-16 08:42] LABS: Carcinoembryonic Antigen 3.94 ng/mL (<5.0 OR =); Prostate Specific Antigen 2.87 ng/mL (0.0-4.0)
== END | disposition home or self-care (01) ==
LOC: LAB 06:41
PROVIDERS: ATTEND Internal Medicine
DX: C18.9 Malignant neoplasm of colon, unspecified (principal); R97.0 Elevated carcinoembryonic antigen [CEA]; R33.9 Retention of urine, unspecified; R63.4 Abnormal weight loss; Z01.812 Encounter for preprocedural laboratory examination
CPT/HCPCS: 36415; 82105; 82378; 82565; 83615; 84153; 84520; 86301

== ENCOUNTER → 2022-03-20 | Outpatient (CLI) | payer MEDICARE, BC | END | disposition home or self-care (01) | LOC: LAB 12:07 | PROVIDERS: ATTEND Urology | DX: R97.20 Elevated prostate specific antigen [PSA] (principal) | CPT/HCPCS: 84153 ==

== ENCOUNTER → 2022-03-30 | Outpatient (CLI) | payer MEDICARE, BC ==
[2022-03-30 07:53] LABS: Basophils % (manual) 0 (0.0-2.0); Blast Cells 0; Metamyelocytes % 0; Myelocytes % 0; Promyelocytes % 0
[2022-03-30 08:14] LABS: Hematocrit 38.2 % (41.0-53.0); Hemoglobin 12.3 g/dL (13.5-17.5); Mean Corpuscular Hemoglobin 28.3 pg (28.0-32.0); Mean Corpuscular Hgb Conc. 32.3 g/dL (32.0-36.0); Mean Corpuscular Volume 87.7 fL (80.0-100.0); Red Blood Cells 4.35 10^6/uL (4.5-5.90); Red Cell Distribution Width 16.9 % (11.8-14.3); White Blood Cell 5.9 10^3/uL (4.4-10.8)
[2022-03-30 08:17] LABS: Albumin 3.1 g/dL (3.4-5.0); Calcium 8.7 mg/dL (8.5-10.1); Potassium 3.8 mmol/L (3.5-5.1)
[2022-03-30 08:20] LABS: BUN/Creatinine Ratio 9.7; Bilirubin, Total 0.4 mg/dL (0.2-1.0); Total Protein 7.8 g/dL (6.4-8.2)
[2022-03-30 15:00] LABS: Band Neutrophils % (manual) 1; Eosinophils % (manual) 4 (0-7); Lymphocytes % (manual) 34 (10.0-50.0); Monocytes % (manual) 17 (0-12); Reactive Lymphocytes 1
== END | disposition home or self-care (01) ==
LOC: LAB 07:44
PROVIDERS: ATTEND Internal Medicine
DX: I10 Essential (primary) hypertension (principal)
CPT/HCPCS: 36415; 80053; 85007; 85027

== ENCOUNTER 2022-04-05 15:59 | Inpatient (IN) | payer MEDICARE, BC ==
[~2022-04-05] VITALS: Ht 176.5 cm; Wt 59.9 kg
[2022-04-05] MEDS ORDERED: ONDANSETRON HCL 4 MG/2 ML VIAL IV PRN (17:15)
[2022-04-05] MEDS ORDERED: HYDROcodone-ACET 5/325MG TAB PO PRN (17:15)
[2022-04-05] MEDS ORDERED: HYDROmorphone HCL 2 MG/ML VL/or syr IV PRN (17:15)
[2022-04-05] MEDS ORDERED: ACETAMINOPHEN 325 MG TAB PO PRN (17:15)
[2022-04-05] MEDS ORDERED: CYANOCOBALAMIN (B-12) 1000 MCG/1 ML VIAL IM ONE (17:30)
[2022-04-05] MEDS ORDERED: ERGOCALCIFEROL 50,000 UNIT(1.25MG) CAP PO SCH (17:30)
[2022-04-05] MEDS ORDERED: TAMSULOSIN HYDROCHLORIDE 0.4 MG CAP PO SCH (18:00)
[2022-04-05 18:47] LABS: Urine Bacteria NONE SEEN /hpf (None Seen); Urine Blood Negative /uL (Negative); Urine Specific Gravity 1.012 (1.001-1.035); Urine WBC 1 /hpf (0 - 3)
[2022-04-05 18:59] LABS: Protein, Urine 45.4 mg/dL (0.0-11.9)
[2022-04-05] MEDS ORDERED: AMLO-489 PO (19:21)
[2022-04-05] MEDS ORDERED: LOSA-69 PO (19:21)
[2022-04-05 19:51] LABS: BUN/Creatinine Ratio 10.2; Calcium 8.7 mg/dL (8.5-10.1); Magnesium 2.2 mg/dL (1.6-2.6); Phosphorus 2.5 mg/dL (2.5-4.90); Potassium 4.2 mmol/L (3.5-5.1)
[2022-04-05 19:57] LABS: Hematocrit 40.1 % (41.0-53.0); Hemoglobin 12.8 g/dL (13.5-17.5); Mean Corpuscular Hemoglobin 27.9 pg (28.0-32.0); Mean Corpuscular Hgb Conc. 31.9 g/dL (32.0-36.0); Mean Corpuscular Volume 87.6 fL (80.0-100.0); Red Blood Cells 4.58 10^6/uL (4.5-5.90); Red Cell Distribution Width 16.7 % (11.8-14.3); White Blood Cell 5.6 10^3/uL (4.4-10.8)
[2022-04-05 20:06] LABS: Band Neutrophils % (manual) 0; Basophils % (manual) 0 (0.0-2.0); Blast Cells 0; Metamyelocytes % 0; Myelocytes % 0; Promyelocytes % 0
[2022-04-05 21:18] LABS: Lymphocytes % (manual) 42 (10.0-50.0)
[2022-04-05 21:19] LABS: Eosinophils % (manual) 4 (0-7); Monocytes % (manual) 15 (0-12); Reactive Lymphocytes 3
[2022-04-05] MEDS: SODIUM CHLOR 0.9% PF (SALINE LOCK) 10ML VIAL/SYR IV SCH (21:46)
[2022-04-05 22:00] VITALS: BP 127/70
[2022-04-06 05:14] VITALS: BP 119/73
[2022-04-06] MEDS: SODIUM CHLOR 0.9% PF (SALINE LOCK) 10ML VIAL/SYR IV SCH ×3 (06:44→21:42)
[2022-04-06 08:30] VITALS: BP 126/73
[2022-04-06 09:00] VITALS: BP 126/73
[2022-04-06] MEDS: CLOPIDOGREL BISULFATE 75 MG TAB PO SCH (09:44)
[2022-04-06] MEDS: CYANOCOBALAMIN (B-12) 1000 MCG/1 ML VIAL IM SCH (09:44)
[2022-04-06] MEDS: ASPirin 81 mg TAB PO SCH (09:44)
[2022-04-06 13:00] VITALS: BP 131/74
[2022-04-06 17:00] VITALS: BP_SYST 65
[2022-04-06] MEDS: TAMSULOSIN HYDROCHLORIDE 0.4 MG CAP PO SCH (17:23)
[2022-04-06 22:00] VITALS: BP 138/81
[2022-04-07 05:00] VITALS: BP 131/77
[2022-04-07] MEDS: SODIUM CHLOR 0.9% PF (SALINE LOCK) 10ML VIAL/SYR IV SCH ×3 (06:25→22:27)
[2022-04-07 09:00] VITALS: BP 127/77
[2022-04-07] MEDS: ASPirin 81 mg TAB PO SCH (09:36)
[2022-04-07] MEDS: CLOPIDOGREL BISULFATE 75 MG TAB PO SCH (09:37)
[2022-04-07] MEDS: DOCUSATE SOD 100 MG CAP PO PRN (09:37)
[2022-04-07] MEDS: CYANOCOBALAMIN (B-12) 1000 MCG/1 ML VIAL IM SCH (09:38)
[2022-04-07 13:00] VITALS: BP 166/87
[2022-04-07 17:00] VITALS: BP 125/75
[2022-04-07] MEDS ORDERED: LACTULOSE 20Gm/30ML SOLN PO ONE (17:30)
[2022-04-07] MEDS: TAMSULOSIN HYDROCHLORIDE 0.4 MG CAP PO SCH (18:23)
[2022-04-07 23:52] VITALS: BP 118/69
[2022-04-08 05:52] VITALS: BP 126/77
[2022-04-08] MEDS: SODIUM CHLOR 0.9% PF (SALINE LOCK) 10ML VIAL/SYR IV SCH ×2 (06:12→14:38)
[2022-04-08] MEDS: DOCUSATE SOD 100 MG CAP PO PRN (06:20)
[2022-04-08 08:00] VITALS: BP 134/79
[2022-04-08 09:14] VITALS: BP 134/79
[2022-04-08] MEDS: ASPirin 81 mg TAB PO SCH (10:04)
[2022-04-08] MEDS: CLOPIDOGREL BISULFATE 75 MG TAB PO SCH (10:04)
[2022-04-08] MEDS: CYANOCOBALAMIN (B-12) 1000 MCG/1 ML VIAL IM SCH (10:04)
[2022-04-08] MEDS ORDERED: BISACODYL 10 MG RECT SUPP PR ONE (11:45)
[2022-04-08 12:32] VITALS: BP 125/62
[2022-04-08 12:33] VITALS: BP 125/62
== END 2022-04-08 16:34 | disposition home or self-care (01) | DRG 641 ==
LOC: UNDOADMIN 16:05 → TELE-CENTR 16:05
PROVIDERS: ADMIT Internal Medicine; ATTEND Internal Medicine
DX: R62.7 Adult failure to thrive (principal); Z68.1 Body mass index [BMI] 19.9 or less, adult; I25.10 Atherosclerotic heart disease of native coronary artery without angina pectoris; J43.9 Emphysema, unspecified; K80.20 Calculus of gallbladder without cholecystitis without obstruction; N40.0 Benign prostatic hyperplasia without lower urinary tract symptoms; E78.5 Hyperlipidemia, unspecified; G31.9 Degenerative disease of nervous system, unspecified; I10 Essential (primary) hypertension; N28.1 Cyst of kidney, acquired; M19.90 Unspecified osteoarthritis, unspecified site; I48.91 Unspecified atrial fibrillation; R43.0 Anosmia; R55 Syncope and collapse; Z20.822 Contact with and (suspected) exposure to COVID-19; R91.1 Solitary pulmonary nodule; R63.4 Abnormal weight loss; D69.6 Thrombocytopenia, unspecified; E55.9 Vitamin D deficiency, unspecified; R97.20 Elevated prostate specific antigen [PSA]; Z80.1 Family history of malignant neoplasm of trachea, bronchus and lung; Z95.0 Presence of cardiac pacemaker; Z95.5 Presence of coronary angioplasty implant and graft; Z87.891 Personal history of nicotine dependence; Z82.49 Family history of ischemic heart disease and other diseases of the circulatory system; Z86.73 Personal history of transient ischemic attack (TIA), and cerebral infarction without residual deficits; Z87.11 Personal history of peptic ulcer disease
CPT/HCPCS: 36415; 70551; 76705; 80048; 81001; 82570; 83735; 83880; 83935; 84100; 84154; 84156; 84300; 84484; 85007; 85027; 93886; G0378

== ENCOUNTER → 2022-05-09 | Outpatient (CLI) | payer MEDICARE, BC ==
[~2022-05-09] MED LIST changes: +AMLO-489 PO; +LOSA-69 PO
== END | disposition home or self-care (01) ==
LOC: XYW 13:40
PROVIDERS: ATTEND Internal Medicine
DX: I35.1 Nonrheumatic aortic (valve) insufficiency (principal); I51.7 Cardiomegaly; I42.9 Cardiomyopathy, unspecified
CPT/HCPCS: 93306

== ENCOUNTER → 2022-11-15 | Outpatient (CLI) | payer MEDICARE, BC ==
[2022-11-15 13:14] LABS: Hematocrit 37.3 % (41.0-53.0); Hemoglobin 12.3 g/dL (13.5-17.5); Mean Corpuscular Hemoglobin 28.7 pg (28.0-32.0); Mean Corpuscular Hgb Conc. 32.8 g/dL (32.0-36.0); Mean Corpuscular Volume 87.2 fL (80.0-100.0); Red Blood Cells 4.28 10^6/uL (4.5-5.90); Red Cell Distribution Width 16.2 % (11.8-14.3); White Blood Cell 6.8 10^3/uL (4.4-10.8)
[2022-11-15 13:26] LABS: Basophils % (manual) 0 (0.0-2.0); Blast Cells 0; Metamyelocytes % 0; Myelocytes % 0; Promyelocytes % 0; Reactive Lymphocytes 0
[2022-11-15 14:00] LABS: Albumin 3.2 g/dL (3.4-5.0); BUN/Creatinine Ratio 10.2 (10.0-20.0); Potassium 4.3 mmol/L (3.5-5.1)
[2022-11-15 14:06] LABS: Bilirubin, Total 0.4 mg/dL (0.2-1.0); Total Protein 8.1 g/dL (6.4-8.2)
[2022-11-15 17:41] LABS: Band Neutrophils % (manual) 1; Eosinophils % (manual) 2 (0-7); Lymphocytes % (manual) 24 (10.0-50.0); Monocytes % (manual) 15 (0-12)
== END | disposition home or self-care (01) ==
LOC: LAB 12:38
PROVIDERS: ATTEND Internal Medicine
DX: I10 Essential (primary) hypertension (principal); E55.9 Vitamin D deficiency, unspecified
CPT/HCPCS: 36415; 80053; 80061; 82274; 82306; 82607; 84443; 85007; 85027

== ENCOUNTER → 2023-01-23 | Outpatient (CLI) | payer MEDICARE, BC ==
[~2023-01-23] MED LIST changes: -AMLO-489 PO; +AMLO1TAB22 PO; +AMLO5CAP2 PO; -AMLO5CAP40 PO; -LOSA-69 PO; +LOSA50TA46 PO
[2023-01-23 11:11] LABS: Hemoglobin 12.8 g/dL (13.5-17.5); Mean Corpuscular Hemoglobin 28.9 pg (28.0-32.0); Mean Corpuscular Hgb Conc. 32.9 g/dL (32.0-36.0); Mean Corpuscular Volume 87.8 fL (80.0-100.0); Red Blood Cells 4.45 10^6/uL (4.5-5.90); Red Cell Distribution Width 15.6 % (11.8-14.3); White Blood Cell 4.9 10^3/uL (4.4-10.8)
[2023-01-23 11:17] LABS: Basophils % (manual) 0 (0.0-2.0); Blast Cells 0; Metamyelocytes % 0; Myelocytes % 0; Promyelocytes % 0; Reactive Lymphocytes 0
[2023-01-23 12:12] LABS: Band Neutrophils % (manual) 5; Eosinophils % (manual) 1 (0-7); Lymphocytes % (manual) 43 (10.0-50.0); Monocytes % (manual) 13 (0-12)
[2023-01-23 12:15] LABS: Albumin 3.6 g/dL (3.4-5.0); Calcium 8.9 mg/dL (8.5-10.1)
[2023-01-23 12:20] LABS: BUN/Creatinine Ratio 9.4 (10.0-20.0); Bilirubin, Total 0.5 mg/dL (0.2-1.0); Total Protein 8.2 g/dL (6.4-8.2)
[2023-01-23 12:22] LABS: Free T4 (Free Thyroxine) 0.94 ng/dL (0.89-1.76); Prostate Specific Antigen 3.05 ng/mL (0.0-4.0)
[2023-01-23 12:23] LABS: Carcinoembryonic Antigen 2.66 ng/mL (<5.0 OR =)
[2023-01-23 12:36] LABS: Thyroid Stimulating Hormone 1.6 uIU/mL (0.358-3.74)
== END | disposition home or self-care (01) ==
LOC: LAB 10:51
PROVIDERS: ATTEND Internal Medicine
DX: E55.9 Vitamin D deficiency, unspecified (principal)
CPT/HCPCS: 36415; 80053; 82306; 82378; 83615; 84153; 84439; 84443; 85007; 85027; 86301

== ENCOUNTER → 2023-02-05 | Outpatient (CLI) | payer MEDICARE, BC ==
[2023-02-05 10:26] LABS: Basophils # (auto) 0 10 ^3/uL (0-0.2); Basophils % (auto) 0.3 % (0.0-2.0); Eosinophils # (auto) 0.1 10 ^3/uL (0-0.8); Eosinophils % (auto) 2.2 % (0.0-7.0); Hematocrit 39.5 % (41.0-53.0); Lymphocytes % (auto) 29.7 % (10.0-50.0); Mean Corpuscular Hemoglobin 28.8 pg (28.0-32.0); Mean Corpuscular Hgb Conc. 32.9 g/dL (32.0-36.0); Mean Corpuscular Volume 87.6 fL (80.0-100.0); Monocytes # (auto) 1.1 10 ^3/uL (0-1.3); Monocytes % (auto) 15.7 % (0.0-12.0); Neutrophils # (auto) 3.6 10 ^3/uL (1.6-8.6); Neutrophils % (auto) 52.1 % (37.0-80.0); Nucleated Red Blood Cells % 0.1 %; Red Cell Distribution Width 15.9 % (11.8-14.3); White Blood Cell 6.8 10^3/uL (4.4-10.8)
[2023-02-05 12:05] LABS: Free T4 (Free Thyroxine) 0.89 ng/dL (0.89-1.76); Prostate Specific Antigen 3.35 ng/mL (0.0-4.0)
[2023-02-05 12:06] LABS: Carcinoembryonic Antigen 3.3 ng/mL (<5.0 OR =)
[2023-02-05 12:37] LABS: Thyroid Stimulating Hormone 1.24 uIU/mL (0.358-3.74)
[2023-02-05 12:41] LABS: Potassium 4.1 mmol/L (3.5-5.1)
[2023-02-05 12:46] LABS: Albumin 3.6 g/dL (3.4-5.0); BUN/Creatinine Ratio 8.5 (10.0-20.0); Bilirubin, Total 0.4 mg/dL (0.2-1.0); Calcium 8.8 mg/dL (8.5-10.1); Total Protein 8.2 g/dL (6.4-8.2)
== END | disposition home or self-care (01) ==
LOC: LAB 09:53
PROVIDERS: ATTEND Internal Medicine
DX: Z01.812 Encounter for preprocedural laboratory examination (principal); I10 Essential (primary) hypertension; I25.10 Atherosclerotic heart disease of native coronary artery without angina pectoris; I48.0 Paroxysmal atrial fibrillation; R97.8 Other abnormal tumor markers; R77.2 Abnormality of alphafetoprotein; E55.9 Vitamin D deficiency, unspecified; R33.9 Retention of urine, unspecified
CPT/HCPCS: 36415; 80053; 82306; 82378; 83615; 84153; 84439; 84443; 85025; 86301

== ENCOUNTER → 2023-07-30 | Outpatient (CLI) | payer MEDICARE, BC | END | disposition home or self-care (01) | LOC: LAB 15:03 | PROVIDERS: ATTEND Urology | DX: N40.1 Benign prostatic hyperplasia with lower urinary tract symptoms (principal) | CPT/HCPCS: 84153 ==

== ENCOUNTER → 2023-10-22 | Outpatient (CLI) | payer MEDICARE, BC ==
[2023-10-22 09:01] LABS: Urine Bacteria NONE SEEN /hpf (None Seen); Urine Blood Negative /uL (Negative); Urine Clarity Clear (Clear); Urine Protein, UAD Negative (Negative); Urine Specific Gravity 1.014 (1.001-1.035); Urine Urobilinogen Normal (Negative); Urine WBC <1 /hpf (0 - 3); Urine pH 5.5 (5.0-8.0)
[2023-10-22 09:02] LABS: Hematocrit 43.1 % (41.0-53.0); Hemoglobin 13.8 g/dL (13.5-17.5); Mean Corpuscular Hemoglobin 28.1 pg (28.0-32.0); Mean Corpuscular Hgb Conc. 31.9 g/dL (32.0-36.0); Red Cell Distribution Width 15.9 % (11.8-14.3); White Blood Cell 5.3 10^3/uL (4.4-10.8)
[2023-10-22 09:08] LABS: Band Neutrophils % (manual) 0; Basophils % (manual) 0 (0.0-2.0); Blast Cells 0; Metamyelocytes % 0; Myelocytes % 0; Promyelocytes % 0; Reactive Lymphocytes 0
[2023-10-22 09:16] LABS: Urine Color Straw (Yellow)
[2023-10-22 09:48] LABS: Alkaline Phosphatase 84 U/L (46-116); Anion Gap 6 (5-15); Aspartate Aminotransferase 23 U/L (13-40); BUN/Creatinine Ratio 9.5 (10.0-20.0); Blood Urea Nitrogen 11 mg/dL (9-23); Calcium 9.5 mg/dL (8.5-10.1); Carbon Dioxide 27 mmol/L (20-30); Chloride 107 mmol/L (98-107); Eosinophils % (manual) 4 (0-7); Glucose 100 mg/dL (74-106); Lymphocytes % (manual) 42 (10.0-50.0); Monocytes % (manual) 36 (0-12); Platelet Estimate Decreased; Potassium 3.9 mmol/L (3.5-5.1); Sodium 140 mmol/L (136-145)
[2023-10-22 09:49] LABS: Albumin 4.1 g/dL (3.2-4.8); Bilirubin, Total 0.5 mg/dL (0.2-1.0); Total Protein 7.8 g/dL (5.7-8.2)
[2023-10-22 09:57] LABS: Alanine Aminotransferase < 9 U/L (7-40)
[2023-10-22 10:42] LABS: Prostate Specific Antigen 3.14 ng/mL (0.0-4.0)
[2023-10-22 10:46] LABS: Free T4 (Free Thyroxine) 0.82 ng/dL (0.89-1.76)
== END | disposition home or self-care (01) ==
LOC: LAB 08:41
PROVIDERS: ATTEND Internal Medicine
DX: I10 Essential (primary) hypertension (principal); E55.9 Vitamin D deficiency, unspecified; R33.9 Retention of urine, unspecified; Z86.79 Personal history of other diseases of the circulatory system
CPT/HCPCS: 36415; 80053; 81001; 82306; 84153; 84439; 84443; 85007; 85027

== ENCOUNTER → 2023-12-20 | Outpatient (CLI) | payer MEDICARE, BC ==
[~2023-12-20] MED LIST changes: -ATO40T PO; +ATOR-507 PO; +LOSA-534 PO; -LOSA50TA46 PO
== END | disposition home or self-care (01) ==
LOC: XYW 10:35
PROVIDERS: ATTEND Internal Medicine
DX: I08.8 Other rheumatic multiple valve diseases (principal); I25.5 Ischemic cardiomyopathy; Z95.0 Presence of cardiac pacemaker
CPT/HCPCS: 93306

== ENCOUNTER 2024-08-18 12:44 | Inpatient (IN) | payer OTHER, BC ==
[~2024-08-18] VITALS: Ht 177.8 cm; Wt 63.8 kg
[~2024-08-18 12:44] MED LIST changes: -TAMS0.4C36 PO; +TAMS0.4C39 PO
--- NOTE | 2024-08-18 13:02 | ECG ---
[facility] Test Date: 2024-08-18 Test Time: 12:52:03 Pat Name: COLE UMAÑA Department: ER Room: [address] [place] [address] Gender: M Provisioning Analyst: MICHAEL : [id number] Requested By: QUINCY HERRMANN Order Number: [id number] Reading MD: Ron Greer Measurements Intervals [place] Rate: 75 P: 0 NM: 0 QRS: 101 QRSD: 163 T: -75 QT: 473 QTc: 529 Interpretive Statements Afib/flut and V-paced complexes No further analysis attempted due to paced rhythm Electronically Signed On 08-19-2024 18:25:23 PST by Ron Greer Please click the below link to view image of tracing.
--- NOTE | 2024-08-18 13:17 | DVH ---
AP portable chest HISTORY: CP Comparison: CXRP on DOS: 12/16/21, CHEST PORTABLE on DOS: 12/16/21, CHEST XRAY 1 VIEW on DOS: 12/15/21 FINDINGS: Heart size is enlarged. Pacer leads in the heart. Aorta tortuous. No infiltrates or effus ions. IMPRESSION: 1. No acute cardiopulmonary pathology
[2024-08-18 13:32] LABS: Hematocrit 52.8 % (41.0-53.0); Hemoglobin 17.1 g/dL (13.5-17.5); Mean Corpuscular Hemoglobin 31.2 pg (28.0-32.0); Mean Corpuscular Hgb Conc. 32.4 g/dL (32.0-36.0); Mean Corpuscular Volume 96.4 fL (80.0-100.0); Platelet Count (auto) 94 10^3/uL (140-450); Red Blood Cells 5.48 10^6/uL (4.5-5.90); Red Cell Distribution Width 17.6 % (11.8-14.3)
[2024-08-18 13:45] LABS: Basophils % (manual) 0 (0.0-2.0); Blast Cells 0; Metamyelocytes % 0; Myelocytes % 0; Promyelocytes % 0; Reactive Lymphocytes 0
[2024-08-18 14:03] LABS: Alkaline Phosphatase 86 U/L (46-116); Anion Gap 13 (5-15); Aspartate Aminotransferase 29 U/L (13-40); BUN/Creatinine Ratio 5.6 (10.0-20.0); Bilirubin, Total 0.8 mg/dL (0.2-1.0); Calcium 10.1 mg/dL (8.7-10.4); Glucose 102 mg/dL (74-106); Sodium 140 mmol/L (136-145)
[2024-08-18 14:04] LABS: Alanine Aminotransferase < 9 U/L (7-40); Blood Urea Nitrogen 7 mg/dL (9-23); Carbon Dioxide 19 mmol/L (20-31); Chloride 108 mmol/L (98-107); Potassium 3.5 mmol/L (3.5-5.1); Total Protein 8.4 g/dL (5.7-8.2)
--- NOTE | 2024-08-18 14:25 | ED.PDOC ---
History of Present Illness HPI Comments 89-year-old male who comes in with chief complaint of shortness a breath for approximately two weeks as well as some left-sided chest pain which has been somewhat off and on. The patient states that he has been having a hard time sleeping. He denies any nausea, vomiting or diarrhea. The patient also denies any fever or chills. The pain is nonradiating at this time. The patient has no other complaints at this time. He is followed by Dr. Greer who is his [employer] technical lead senior developer. The patient also currently has a pacemaker. Chief Complaint: Chest Pain Time Seen by MD: 13:53 Primary Care Provider: star Soria Notes: Nurses Notes, Medications, Allergies (No allergies to medications) Allergies: Coded Allergies: NO KNOWN ALLERGIES (Unverified , 04/29/21) Home Meds Active Scripts Amiodarone Hcl (Amiodarone Hcl) 200 Mg Tab, 200 MG PO BID for 30 Days, #60 TAB Prov:DULCE COX MD 12/16/21 Apixaban Base (ELIQUIS) 2.5 Mg Tab, 2.5 MG PO BID for 30 Days, #60 TAB Prov:DULCE COX MD 12/16/21 Reported Medications Losartan Potassium (Losartan Potassium) 50 Mg Tab, 1 TAB PO DAILY 04/05/22 Amlodipine Besylate (Amlodipine Besylate) 5 Mg Tab, 1 TAB PO DAILY 04/05/22 Amlodipine Besylate-Benazepril (Lotrel) 1 Cap Cap, 1 CAP PO DAILY for HYPER TENSION 04/29/21 Finasteride (Finasteride) 5 Mg Tab, 5 MG PO DAILY for BPH 04/29/21 Tamsulosin Hcl (Tamsulosin Hcl) 0.4 Mg Cap, 0.4 MG PO QPM for BPH 04/29/21 Oxybutynin Chloride (Ditropan Xl) 5 Mg Tab, 10 MG PO DAILY for URINARY URGENCY 04/29/21 Ferrous Sulfate Dried (Iron High Potency) 65 Mg Tab, 65 MG PO DAILY for ANEMIA 04/29/21 Atorvastatin Calcium (Lipitor) 40 Mg Tab, 1 TAB PO QPM for HIGH CHOLESTEROL 02/16/19 Clopidogrel Bisulfate (Plavix) 75 Mg Tab, 75 MG PO QAM for CAD 02/16/19 Information Source: Patient Mode of Arrival: Ambulatory Severity: Moderate Timing: Days Duration: Since onset Prehospital treatment: None Location: Left-sided pressure-like chest pain that is nonradiating Associated signs and symptoms Associated shortness a breath but no nausea or vomiting Past Medical History PAST MEDICAL HISTORY: AFIB, CAD, High Lipids, HTN, PUD Surgical History: Appendectomy, Pacemaker, PTCA Surgical History (Other): Left wrist surgery, also surgery Family History Family History: No family hx of Heart johnny, No family hx of HTN Social History Smoker: Quit Greater Than 1 Year, Cigarettes Alcohol: Occasionally Drugs: Denies Drug Use Lives In: Home Physical Exam General Appearance: Moderate Distress, Thin HEENT: Normal ENT Inspection, Pharynx Normal, TMs Normal Neck: Full Range of Motion, Non-Tender, Normal, Normal Inspection Respiratory: Chest Non-Tender, Lungs Clear, No Accessory Muscle Use, No Respiratory Distress, Normal Breath Sounds Cardiovascular: No Edema, No JVD, No Murmur, No Gallop, Normal Peripheral Pulses, Regular Rate/Rhythm, Other (Pacemaker to the chest) Breast Exam: Deferred Gastrointestinal: No Organomegaly, Non Tender, No Pulsatile Mass, Normal Bowel Sounds, Soft Genitalia: Deferred Pelvic: Deferred Rectal: Deferred Extremities: No calf tenderness, Normal capillary refill, Normal inspection, Normal range of motion, Non-tender, No pedal edema Musculoskeletal : Apperance: Normal Neurologic: Alert, factory machine computer operator II-XII nml as Tested, No Motor Deficits, Normal Affect, Normal Mood, No Sensory Deficits Cerebellar Function: Normal Reflexes: Normal Skin: Dry, Normal Color, Warm Lymphatic: No Adenopathy Was a procedure done? Was a procedure done?: No EKG EKG : Pulse Rate (adult): 73 [place]: Normal Cardiac Rhythm: Paced Block: None ST: Nonsp Differential Dx Considerations may include: ACS, [place], STEMI, X-Ray, Labs, Meds, VS Vital Signs Date Time Temp Pulse Resp B/P (MAP) Pulse Ox O2 Delivery O2 Flow Rate FiO2 08/18/24 14:30 73 08/18/24 14:05 72 08/18/24 12:59 97.9 92 20 188/103 (131) 98 08/18/24 12:52 75 Lab Test 08/18/24 13:50 08/18/24 12:59 Range/Units Troponin I High Sensitivity 110 *H 99 *H </=54 ng/L White Blood Count 5.0 4.4-10.8 10^3/uL Red Blood Count 5.48 4.5-5.90 10^6/uL Hemoglobin 17.1 13.5-17.5 g/dL Hematocrit 52.8 41.0-53.0 % Mean Corpuscular Volume 96.4 80.0-100.0 fL Mean Corpuscular Hemoglobin 31.2 28.0-32.0 pg Mean Corpuscular Hemoglobin Concent 32.4 32.0-36.0 g/dL Red Cell Distribution Width 17.6 H 11.8-14.3 % Platelet Count 94 L 140-450 10^3/uL Mean Platelet Volume 10.8 6.9-10.8 fL Neutrophils (%) (Auto) 37.0-80.0 % Lymphocytes (%) (Auto) 10.0-50.0 % Monocytes (%) (Auto) 0.0-12.0 % Basophils (%) (Auto) 0.0-2.0 % Neutrophils # (Auto) 1.6-8.6 10 ^3/uL Lymphocytes # (Auto) 0.4-5.4 10 ^3/uL Monocytes # (Auto) 0-1.3 10 ^3/uL Differential Total Cells Counted 100.0 100 Neutrophils % (Manual) 39 37.0-80.0 Band Neutrophils % (Manual) 1 Lymphocytes % (Manual) 45 10.0-50.0 Monocytes % (Manual) 14 H 0-12 Eosinophils % (Manual) 1 0-7 Basophils % (Manual) 0 0.0-2.0 Metamyelocytes % (manual) 0 Myelocytes % (Manual) 0 Promyelocytes % (Manual) 0 Blast Cells % (Manual) 0 Reactive Lymphocytes 0 Platelet Estimate Decreased Large Platelets Few Giant Platelets Sodium Level 140 136-145 mmol/L Potassium Level 3.5 3.5-5.1 mmol/L Chloride Level 108 H 98-107 mmol/L Carbon Dioxide Level 19 L 20-31 mmol/L Anion Gap 13 5-15 Blood Urea Nitrogen 7 L 9-23 mg/dL Creatinine 1.25 0.700-1.30 mg/dL Glomerular Filtration Rate Calc 56 >90 mL/min BUN/Creatinine Ratio 5.6 L 10.0-20.0 Serum Glucose 102 74-106 mg/dL Calcium Level 10.1 8.7-10.4 mg/dL Total Bilirubin 0.8 0.2-1.0 mg/dL Aspartate Amino Transferase (AST) 29 13-40 U/L Alanine Aminotransferase (ALT) < 9 7-40 U/L Alkaline Phosphatase 86 46-116 U/L Total Protein 8.4 H 5.7-8.2 g/dL Albumin 4.0 3.2-4.8 g/dL The patient's 1st troponin level came back at 99 but the 2nd one has come back at 110. We did repeat EKGs and the patient was on a pacemaker. The patient's CBC and chemistry panel is within normal limits At this time, we are going to admit the patient We contacted the patient's primary care physician and he will also be seeing the patient. We spoke with the [employer] technical lead senior developer and he is aware of the patient's troponin levels The patient is on aspirin and is being admitted at this time. Images Reviewed?: Images reviewed and evaluated by me Time of 1ST Reevaluation: 14:30 Reevaluation 1ST: Unchanged Patient Education/Counseling: Diagnosis, Treatment, Prognosis Family Education/Counseling: No Family Present Departure 1 Departure Time of Disposition: 14:29 Impression: Primary Impression: Non-STEMI (non-ST elevated myocardial infarction) Disposition: 09 ADMITTED INPATIENT Admit to: Tele Condition: Fair Critical Care Note Critical Care Time?: Yes (35 min-critical care time only) Stability Stability form required: Yes Unstable for transfer: Telemetry monitoring (Telemetry monitoring required), ED Physician Assesment (Clinical assesment) Heart Score Heart Score: Heart Score Response (Comments) Value History Highly Suspicious 2 EKG Repolarization Disturb 1 Age >65 2 Risk Factors >3 or Hx ASHD 2 Troponin 1-2 x's Normal limit 1 Total 8 JEROME GRIMES MD Aug 18, 2024 14:25
[2024-08-18 14:27] LABS: Band Neutrophils % (manual) 1; Eosinophils % (manual) 1 (0-7); Lymphocytes % (manual) 45 (10.0-50.0); Monocytes % (manual) 14 (0-12); Platelet Estimate Decreased
[2024-08-18 14:28] LABS: Large Platelets FEW
[2024-08-18] MEDS ORDERED: NITROGLYCERIN 0.4 MG SL TAB SL PRN (19:30)
[2024-08-18] MEDS ORDERED: ACETAMINOPHEN 325 MG TAB PO PRN (19:30)
[2024-08-18] MEDS ORDERED: AMIODARONE HCL 200 MG TAB PO SCH (22:00)
[2024-08-18] MEDS: ATORVASTATIN 20 MG TAB PO SCH (23:29)
[2024-08-18] MEDS: ASPirin 81 mg TAB PO ONE (23:31)
[2024-08-18 23:32] VITALS: PULSE 92; RESP 18; O2SAT 94
[2024-08-18] MEDS: hydrALAZINE HCL 20 MG/ML VL IV PRN (23:32)
[2024-08-19] MEDS: MORPHINE SULFATE INJ 2 MG/ml SYRG IV PRN (01:03)
[2024-08-19] MEDS: ONDANSETRON HCL 4 MG/2 ML VIAL IV PRN (01:04)
[2024-08-19] MEDS: hydrALAZINE HCL 20 MG/ML VL IV ONE (01:04)
[2024-08-19 01:13] VITALS: PULSE 76; RESP 18; O2SAT 99
[2024-08-19 02:48] LABS: Urine Bacteria None Seen /hpf (None Seen); Urine WBC None Seen /hpf (0 - 3)
[2024-08-19 03:38] LABS: Urine Blood Negative /uL (Negative); Urine Clarity Clear (Clear); Urine Color Light-Yellow (Yellow); Urine Protein, UAD TRACE (Negative); Urine Specific Gravity 1.013 (1.001-1.035); Urine Squamous Epithelial Cell None Seen /hpf (<5); Urine Urobilinogen Normal (Negative); Urine pH 6.5 (5.0-9.0)
--- NOTE | 2024-08-19 03:38 | DVHHP2 ---
History of Present Illness Reason for Visit: Shortness for breath History of Present Illness 89-year-old male presents for evaluation of shortness for breath. Patient presents with a two week history of worsening shortness for breath with associated chest pressure . Patient denies nausea or vomiting. No fever or chills. No other acute complaints reported. Past Medical History Hypertension, dyslipidemia, CAD, atrial fibrillation Past Surgical History PTCA, pacemaker, appendectomy Family History Noncontributory Smoke: No ALCOHOL: none Drugs: None Lives: with Family Review of Systems Review of Systems Review of systems are currently negative otherwise addressed in HPI. Allergies: Coded Allergies: NO KNOWN ALLERGIES (Unverified , 04/29/21) Medications Current Medications Medications Dose Ordered Sig/Noreen Route Start Time Stop Time Status Last Admin Dose Admin Aspirin 81 mg DAILY PO 08/19/24 10:00 Losartan Potassium 50 mg DAILY PO 08/19/24 10:00 Atorvastatin Calcium 40 mg HS PO 08/18/24 22:00 08/18/24 23:29 40 MG Amlodipine Besylate 5 mg DAILY PO 08/19/24 10:00 Amiodarone HCl 200 mg Q12HR PO 08/18/24 22:00 Hold Apixaban 2.5 mg BID PO 08/19/24 10:00 Clopidogrel Bisulfate 75 mg DAILY PO 08/19/24 10:00 Hydralazine HCl 10 mg Q6HP PRN IV 08/18/24 19:30 08/18/24 23:32 10 MG Ondansetron HCl 4 mg Q4HP PRN IV 08/18/24 19:30 08/19/24 01:04 4 MG Acetaminophen 650 mg Q6HP PRN PO 08/18/24 19:30 Nitroglycerin 0.4 mg Q5MINP PRN SL 08/18/24 19:30 Morphine Sulfate 2 mg Q30M PRN IV 08/18/24 19:30 08/19/24 01:03 2 MG Exam Vital Signs Vital Signs Date Time Temp Pulse Resp B/P (MAP) Pulse Ox O2 Delivery O2 Flow Rate FiO2 08/19/24 02:31 158/85 (109) 08/19/24 01:51 98.0 85 18 99 98.0 08/19/24 01:13 Room Air* 2 N/A Nasal Cannula* Exam Gen: 89-year-old male in no apparent distress Skin: Warm, dry, normal color and texture, no rash. HEENT: Normocephalic atraumatic, mucous membranes moist and pink. Neck: Cervical and supraclavicular nodes normal without enlargement, trachea is midline, thyroid gland is normal without masses. Pulmonary: Clear to auscultation and percussion bilaterally. Cardiac: Regular rate and rhythm. No murmur Abdomen: Soft, nontender, nondistended, bowel sounds present all 4 quadrants, no guarding, no rigidity, no organomegaly. Extremities: No cyanosis, clubbing, no edema Neuro: Cranial nerves II through XII grossly intact, normal affect and speech, no focal motor deficits. Labs/Xrays ORDERING PHYSICIAN: ROSLYN KEARNS MD PROCEDURE(s): ECIDC - ECHO 2D MODE CARDIAC DOP REASON: I25.5 ORDER NUMBER(s): [id number], ACCESSION NUMBER(s): [id number] APPROVED REPORT EXAM: Two-dimensional and M-mode echocardiogram with Doppler and color Doppler. INDICATION Ischemic Cardiomyopathy RISK FACTORS Height: 70, Weight: 146 DIMENSIONS LVDd 4.9 (3.8-5.7cm) LA (2D) 3.9 (1.9-4.0cm) Aortic Root 3.6 (2.0- 3.7cm) LVDs 3.1 (2.5-4.0cm) LA (MM) (1.9-4.0cm) Aortic Cusp Exc 2.0 (1.5- 2.0cm) EF (%) 66.0 (55-70%) Rt. Atrium 4.2 (1.9-4.0cm) Asc. Aorta cm IVSd 1.2 (0.7-1.1cm) RV (D) (1.8-2.4cm) PWd 1.0 (0.7-1.1cm) Mitral Valve Mitral Mitral Stenosis E wave 0.30m/s MV Mean GR. mmHg A wave 0.67m/s MV Peak GR. 62mmHg E/A ratio 0.4 2D MVA cm2 DECEL Time 328ms PRESS 1/2 Time ms Aortic Valve Aortic Valve Aortic Stenosis V1 0.79m/s AO Mean GR. 3mmHg V2 1.16m/s AO Peak GR. 5mmHg LVOT Diameter 2.2 (1.8-2.4cm) Doppler MAAME 2.59cm2 AI P 08/14 Time 983.92ms Pulmonic Valve V2 0.71m/s Tricuspid Valve TR Velocity 1.90m/s RVSP 17mmHg Conclusion Normal left ventricular size and dimension. Mild concentric left ventricular hypertrophy. Mildly reduced left ventricular systolic function at 45-50%. There is basal inferior wall hypokinesia. Normal right ventricular size and dimension. Normal left ventricular systolic function. There is a permanent pacemaker lead seen in the right ventricular cavity. Normal biatrial size and dimension. Normal aortic valve structure and function. Normal mitral valve structure and function. There is mild tricuspid valve regurgitation. There is mild pulmonary valve regurgitation. No pericardial effusion. SIGNED BY: SANTY GARDUNO MD SIGNED DATE/TIME: 12/20/23 1341 CC: ORDERING PHYSICIAN: QUINCY HERRMANN MD PROCEDURE(s): CXRP - CHEST PORTABLE REASON: CP ORDER NUMBER(s): [id number], ACCESSION NUMBER(s): [id number] AP portable chest HISTORY: CP Comparison: CXRP on DOS: 12/16/21, CHEST PORTABLE on DOS: 12/16/21, CHEST XRAY 1 VIEW on DOS: 12/15/21 FINDINGS: Heart size is enlarged. Pacer leads in the heart. Aorta tortuous. No infiltrates or effusions. IMPRESSION: 1. No acute cardiopulmonary pathology Labs Test 08/18/24 16:17 08/18/24 12:59 08/18/24 01:49 Range/Units Troponin I High Sensitivity 108 *H </=54 ng/L White Blood Count 5.0 4.4-10.8 10^3/uL Red Blood Count 5.48 4.5-5.90 10^6/uL Hemoglobin 17.1 13.5-17.5 g/dL Hematocrit 52.8 41.0-53.0 % Mean Corpuscular Volume 96.4 80.0-100.0 fL Mean Corpuscular Hemoglobin 31.2 28.0-32.0 pg Mean Corpuscular Hemoglobin Concent 32.4 32.0-36.0 g/dL Red Cell Distribution Width 17.6 H 11.8-14.3 % Platelet Count 94 L 140-450 10^3/uL Mean Platelet Volume 10.8 6.9-10.8 fL Neutrophils (%) (Auto) 37.0-80.0 % Lymphocytes (%) (Auto) 10.0-50.0 % Monocytes (%) (Auto) 0.0-12.0 % Basophils (%) (Auto) 0.0-2.0 % Neutrophils # (Auto) 1.6-8.6 10 ^3/uL Lymphocytes # (Auto) 0.4-5.4 10 ^3/uL Monocytes # (Auto) 0-1.3 10 ^3/uL Differential Total Cells Counted 100.0 100 Neutrophils % (Manual) 39 37.0-80.0 Band Neutrophils % (Manual) 1 Lymphocytes % (Manual) 45 10.0-50.0 Monocytes % (Manual) 14 H 0-12 Eosinophils % (Manual) 1 0-7 Basophils % (Manual) 0 0.0-2.0 Metamyelocytes % (manual) 0 Myelocytes % (Manual) 0 Promyelocytes % (Manual) 0 Blast Cells % (Manual) 0 Reactive Lymphocytes 0 Platelet Estimate Decreased Large Platelets Few Giant Platelets Sodium Level 140 136-145 mmol/L Potassium Level 3.5 3.5-5.1 mmol/L Chloride Level 108 H 98-107 mmol/L Carbon Dioxide Level 19 L 20-31 mmol/L Anion Gap 13 5-15 Blood Urea Nitrogen 7 L 9-23 mg/dL Creatinine 1.25 0.700-1.30 mg/dL Glomerular Filtration Rate Calc 56 >90 mL/min BUN/Creatinine Ratio 5.6 L 10.0-20.0 Serum Glucose 102 74-106 mg/dL Calcium Level 10.1 8.7-10.4 mg/dL Total Bilirubin 0.8 0.2-1.0 mg/dL Aspartate Amino Transferase (AST) 29 13-40 U/L Alanine Aminotransferase (ALT) < 9 7-40 U/L Alkaline Phosphatase 86 46-116 U/L B-Type Natriuretic Peptide 1323.00 0-100 pg/mL Total Protein 8.4 H 5.7-8.2 g/dL Albumin 4.0 3.2-4.8 g/dL Assessment/Plan Assessment/Plan Assessment Elevated troponin rule out NSTEMI Congestive heart failure Status post pacemaker Hypertension Atrial fibrillation with secondary coagulopathy Plan Admit the patient to telemetry to the hospitalist Cardiology consultation Resume home medications Continue treatment per orders. Plan discussed with: Patient My Orders Orders - ISACC ROUSE Procedure Category Date Status Time Aspirin Tablet PHA 08/19/24 In Process 10:00 Losartan Tablet PHA 08/19/24 In Process (Cozaar Tablet) 10:00 Atorvastatin (Lipitor) PHA 08/18/24 In Process 22:00 Amlodipine Tablet PHA 08/19/24 In Process (Norvasc Tablet) 10:00 Amiodarone Tablet PHA 08/18/24 In Process (Cordarone Tablet) 22:00 Clopidogrel Bisulfate PHA 08/19/24 In Process (Plavix) 10:00 Basic Metabolic Panel LAB 08/19/24 Logged 04:00 Hydralazine Injection PHA 08/18/24 In Process (Apresoline Inject 19:30 Admit ADMIT 08/18/24 Transmitted 19:26 Ondansetron Hcl PHA 08/18/24 In Process (Zofran) 19:30 Cardiac DIET 08/19/24 Transmitted Diet-2gna,Lofat,Lochol Breakfast Condition: Fair JAIMEE 08/18/24 In Process 19:26 Acetaminophen Tablet PHA 08/18/24 In Process (Tylenol Tablet) 19:30 Bedrest With Bathroom JAIMEE 08/18/24 In Process Privileg 19:26 Nitroglycerin PHA 08/18/24 In Process Sublingual (Ntrostat 19:30 Morphine Sulfate PHA 08/18/24 In Process Injection 19:30 Stat Ekg For Chest JAIMEE 08/18/24 In Process Pain 19:26 Notify Md Of Changes JAIMEE 08/18/24 In Process From Base 19:26 Liner Worker For JAIMEE 08/18/24 In Process 24 Hours 19:26 Emergency Dysrhythmia JAIMEE 08/18/24 In Process Protocol 19:26 Rhythm Strips Once JAIMEE 08/18/24 In Process Every Shift 19:26 Oxygen By Nasal RT 08/18/24 Transmitted Cannula 19:26 Apixaban (Eliquis) PHA 08/19/24 In Process 10:00 Date of Service: Aug 18, 2024 Billing Provider: ISACC ROUSE Common Visit Codes: [id number] INP/OBS CARE (HIGH) ISACC ROUSE AGACNP Aug 19, 2024 03:38
[2024-08-19 06:29] LABS: Anion Gap 8 (5-15); Calcium 9.6 mg/dL (8.7-10.4); Carbon Dioxide 23 mmol/L (20-31); Potassium 4.4 mmol/L (3.5-5.1); Sodium 138 mmol/L (136-145)
[2024-08-19 06:35] LABS: BUN/Creatinine Ratio 6.1 (10.0-20.0); Blood Urea Nitrogen 7 mg/dL (9-23); Chloride 107 mmol/L (98-107); Glucose 105 mg/dL (74-106)
[2024-08-19 08:00] VITALS: PULSE 98; RESP 15; O2SAT 98
[2024-08-19] MEDS: FUROSEMIDE 40 MG TAB PO SCH (09:42)
[2024-08-19] MEDS: ASPirin 81 mg TAB PO SCH (09:43)
[2024-08-19] MEDS: CLOPIDOGREL BISULFATE 75 MG TAB PO SCH (09:43)
[2024-08-19] MEDS: LOSARTAN POTASSIUM 50 MG TAB PO SCH (09:45)
--- NOTE | 2024-08-19 09:49 | DVHINCON2 ---
Date Seen: Aug 19, 2024 Referring Physician MD Alverto Reason for Consultation Chest pain and elevated troponin History of Present Illness This is an 89-year-old male patient who presents to the emergency room with chief complaint of shortness of breath and chest pain. The patient reports that the shortness of breath began approximately two weeks ago. He reports that the chest pain began approximately one week ago. He describes the chest pain as unprovoked, pressure-like in nature, intermittent, left-sided and without radiation. Cardiology has now been consulted for further evaluation. Initial twelve lead electrocardiogram reveals paced rhythm with underlying atrial fibrillation. Initial troponin level of 99ng/L with flat trend thereafter. Initial BNP level of 1323.00pg/mL. Significant past medical history includes congestive heart failure, coronary artery disease status post PTCA x1 KRISTEL (on ASA), sick sinus syndrome status post dual-chamber permanent pacemaker (Biotronik), atrial fibrillation (on low-dose Eliquis), hypertension, chronic kidney disease, and previous tobacco use. Of significance, the patient reports running out of his medications over a week ago. He reports he has been unable to refill his medications and has not taken any of his prescribed medications for over one week since he ran out. 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 Past Medical History Past medical history reviewed. No other significant than mentioned above. Past Surgical History Permanent pacemaker insertion on 12/14/2021 Appendectomy Family History: Patient reports no known family medical history. Family History Family history reviewed. Social History Patient has a 40 pack-year history, quit smoking in 2002 Patient denies any alcohol use Patient denies any illicit drug use Allergies: Coded Allergies: NO KNOWN ALLERGIES (Unverified , 04/29/21) Home Meds Active Scripts Amiodarone Hcl (Amiodarone Hcl) 200 Mg Tab, 200 MG PO BID for 30 Days, #60 TAB Prov:DULCE COX MD 12/16/21 Apixaban Base (ELIQUIS) 2.5 Mg Tab, 2.5 MG PO BID for 30 Days, #60 TAB Prov:DULCE COX MD 12/16/21 Reported Medications Losartan Potassium (Losartan Potassium) 50 Mg Tab, 1 TAB PO DAILY 04/05/22 Amlodipine Besylate (Amlodipine Besylate) 5 Mg Tab, 1 TAB PO DAILY 04/05/22 Amlodipine Besylate-Benazepril (Lotrel) 1 Cap Cap, 1 CAP PO DAILY for HYPERTENSION 04/29/21 Finasteride (Finasteride) 5 Mg Tab, 5 MG PO DAILY for BPH 04/29/21 Tamsulosin Hcl (Tamsulosin Hcl) 0.4 Mg Cap, 0.4 MG PO QPM for BPH 04/29/21 Oxybutynin Chloride (Ditropan Xl) 5 Mg Tab, 10 MG PO DAILY for URINARY URGENCY 04/29/21 Ferrous Sulfate Dried (Iron High Potency) 65 Mg Tab, 65 MG PO DAILY for ANEMIA 04/29/21 Atorvastatin Calcium (Lipitor) 40 Mg Tab, 1 TAB PO QPM for HIGH CHOLESTEROL 02/16/19 Clopidogrel Bisulfate (Plavix) 75 Mg Tab, 75 MG PO QAM for CAD 02/16/19 Home Meds Home medications reviewed. Current Medications Current Medications Medications (Trade) Dose Ordered Sig/Noreen Route PRN Reason Start Time Stop Time Status Last Admin Aspirin 81 mg DAILY PO 08/19/24 10:00 08/19/24 09:43 Losartan Potassium (Cozaar Tablet) 50 mg DAILY PO 08/19/24 10:00 08/19/24 09:45 Atorvastatin Calcium (Lipitor) 40 mg HS PO 08/18/24 22:00 08/18/24 23:29 Amlodipine Besylate (Norvasc Tablet) 5 mg DAILY PO 08/19/24 10:00 Amiodarone HCl (Cordarone Tablet) 200 mg Q12HR PO 08/18/24 22:00 Hold Apixaban (Eliquis) 2.5 mg BID PO 08/19/24 10:00 Clopidogrel Bisulfate (Plavix) 75 mg DAILY PO 08/19/24 10:00 08/19/24 09:43 Hydralazine HCl (Apresoline Injection) 10 mg Q6HP PRN IV SBP>150 08/18/24 19:30 08/19/24 08:21 Ondansetron HCl (Zofran) 4 mg Q4HP PRN IV NAUSEA / VOMITING 08/18/24 19:30 08/19/24 01:04 Acetaminophen (Tylenol Tablet) 650 mg Q6HP PRN PO PAIN SCALE 1-3 OR TEMP>100.4 08/18/24 19:30 Nitroglycerin (Ntrostat Sublingual) 0.4 mg Q5MINP PRN SL FOR CHEST PAIN 08/18/24 19:30 Morphine Sulfate 2 mg Q30M PRN IV FOR CHEST PAIN 08/18/24 19:30 08/19/24 01:03 Furosemide (Lasix Tablet) 40 mg DAILY PO 08/19/24 10:00 08/19/24 09:42 Review of Systems Constitutional: No symptom reported Ears, Nose, & Throat: No symptom reported Eyes: No symptom reported Neurological: No symptoms reported Pulmonary/Respiratory: Shortness of breath Cardiovascular: Chest pain Gastrointestinal: No symptom reported Genitourinary: No symptom reported Musculoskeletal: No symptom reported Skin: No symptom reported Psychiatric: No symptom reported Endocrine: No symptom reported Hematologic/Lymphatic: No symptom reported Vital Signs Vital Signs Date Time Temp Pulse Resp B/P (MAP) Pulse Ox O2 Delivery O2 Flow Rate FiO2 08/19/24 09:45 160/69 08/19/24 08:30 69 08/19/24 08:00 15 98 Nasal Cannula* 2 28 08/19/24 08:00 98.7 98.7 Physical Exam General Appearance: Cooperative. Well-developed. Well-nourished. No acute distress. Pulmonary/Respiratory: Clear, bilateral breaths sounds. Cardiovascular/Chest: Regular rate and rhythm. Peripheral Pulses: 2+ Radial (R). 2+ Radial (L). Abdominal Exam: Normal bowel sounds. Ankle Exam: Trace bilateral ankle edema Lower extremities: Negative lower extremity edema Neuro/Mental Status: A/OX4, coherent. Thoughts/Psych: Normal thought pattern. Appropriate mood and affect. Good judgment and insight. Appearance: No acute distress. Skin Exam: Normal inspection. Normal color. Warm and dry. Labs/Diagnostic Data Labs Test 08/19/24 05:40 08/18/24 16:17 08/18/24 12:59 08/18/24 01:49 Range/Units Sodium Level 138 136-145 mmol/L Potassium Level 4.4 3.5-5.1 mmol/L Chloride Level 107 98-107 mmol/L Carbon Dioxide Level 23 20-31 mmol/L Anion Gap 8 5-15 Blood Urea Nitrogen 7 L 9-23 mg/dL Creatinine 1.14 0.700-1.30 mg/dL Glomerular Filtration Rate Calc 62 >90 mL/min BUN/Creatinine Ratio 6.1 L 10.0-20.0 Serum Glucose 105 74-106 mg/dL Calcium Level 9.6 8.7-10.4 mg/dL Troponin I High Sensitivity 108 *H </=54 ng/L White Blood Count 5.0 4.4-10.8 10^3/uL Red Blood Count 5.48 4.5-5.90 10^6/uL Hemoglobin 17.1 13.5-17.5 g/dL Hematocrit 52.8 41.0-53.0 % Mean Corpuscular Volume 96.4 80.0-100.0 fL Mean Corpuscular Hemoglobin 31.2 28.0-32.0 pg Mean Corpuscular Hemoglobin Concent 32.4 32.0-36.0 g/dL Red Cell Distribution Width 17.6 H 11.8-14.3 % Platelet Count 94 L 140-450 10^3/uL Mean Platelet Volume 10.8 6.9-10.8 fL Neutrophils (%) (Auto) 37.0-80.0 % Lymphocytes (%) (Auto) 10.0-50.0 % Monocytes (%) (Auto) 0.0-12.0 % Basophils (%) (Auto) 0.0-2.0 % Neutrophils # (Auto) 1.6-8.6 10 ^3/uL Lymphocytes # (Auto) 0.4-5.4 10 ^3/uL Monocytes # (Auto) 0-1.3 10 ^3/uL Differential Total Cells Counted 100.0 100 Neutrophils % (Manual) 39 37.0-80.0 Band Neutrophils % (Manual) 1 Lymphocytes % (Manual) 45 10.0-50.0 Monocytes % (Manual) 14 H 0-12 Eosinophils % (Manual) 1 0-7 Basophils % (Manual) 0 0.0-2.0 Metamyelocytes % (manual) 0 Myelocytes % (Manual) 0 Promyelocytes % (Manual) 0 Blast Cells % (Manual) 0 Reactive Lymphocytes 0 Platelet Estimate Decreased Large Platelets Few Giant Platelets Total Bilirubin 0.8 0.2-1.0 mg/dL Aspartate Amino Transferase (AST) 29 13-40 U/L Alanine Aminotransferase (ALT) < 9 7-40 U/L Alkaline Phosphatase 86 46-116 U/L B-Type Natriuretic Peptide 1323.00 0-100 pg/mL Total Protein 8.4 H 5.7-8.2 g/dL Albumin 4.0 3.2-4.8 g/dL Urine Color Light-yellow Yellow Urine Clarity Clear Clear Urine pH 6.5 5.0-9.0 Urine Specific [place] 1.013 1.001-1.035 Urine Protein Trace H Negative Urine Ketones 1+ H Negative Urine Blood Negative Negative /uL Urine Nitrite Negative Negative Urine Bilirubin Negative Negative Urine Urobilinogen Normal Negative mg/dL Urine Leukocyte Esterase Negative Negative /uL Urine RBC 1 0 - 3 /hpf Urine WBC None seen 0 - 3 /hpf Urine Squamous Epithelial Cells None seen <5 /hpf Urine Bacteria None seen None Seen /hpf Urine Glucose Normal Normal mg/dL Assessment Chest pain, rule out progressive coronary artery disease Acute on chronic decompensated HFmrEF, NYHA class III (last echo 12/15/23 EF 45- 50%) Coronary artery disease status post PTCA x1 KRISTEL (on aspirin) Sick sinus syndrome status post dual chamber permanent pacemaker (Biotronik) Unspecified atrial fibrillation (on low-dose Eliquis) Hypertension Chronic kidney disease History of tobacco use Medical noncompliance Plan/Recommendation We will continue with the following plan/recommendations (Dr. Greer): * Echocardiogram to evaluate cardiac function * Initiate GDMT for CHF * Strict intake and output, daily weights, maintain fluid restriction * BP control * Lipid-lowering agent * Coronary angiogram with left heart catheterization Case discussed with . Patient to undergo a coronary angiogram with left heart catheterization. Procedure was discussed with the patient full detail including risks and benefits. Risks include but are not limited to bleeding, contrast induced nephropathy, stroke, and even the patient understands and is agreeable to undergo the procedure. We will schedule the patient at first availability on 08/20/24. Thank you for allowing us to care for this patient. Please call with any questions or concerns. Critical care time spent: 44 minutes This medical document was created using an electronic medical record system with voice recognition software and computerized dictation system. Although this document has been carefully reviewed, there might still be some phonetic and typographical errors. Occasional wrong-word or ``sound-alike substitutions may have occurred due to the inherent limitations of voice recognition software. These areas are purely typographical due to imperfections of the software programs and do not reflect any compromise in the patient's medical care. Please read the chart carefully and recognize, using context, where these substitutions have occurred. Plan discussed with: Patient NYHA Physical activity limitations: Class3(Marked) ordinary (activity causes symtoms) Date of Service: Aug 19, 2024 Billing Provider: KELL ROSSI Cardiology Common Codes: [id number] INP/OBS CARE (High) Cardiology Consultation Codes: [id number] CONSULT <45MIN KELL ROSSI Aug 19, 2024 09:49
[2024-08-19] MEDS: APIXABAN 2.5 MG TAB PO SCH (09:52)
[2024-08-19] MEDS: amLODIPine BESYLATE 5 MG TAB PO SCH (10:01)
[2024-08-19 14:31] LABS: Cannabinoid Screen, Urine Pos (NEGATIVE); Opiate Scree,Urine Neg (NEGATIVE)
[2024-08-19 14:37] LABS: Amphetamine Screen, Urine Neg (NEGATIVE); Barbiturate Scree,Urine Neg (NEGATIVE); Phencyclidine Screen, Urine Neg (NEGATIVE)
[2024-08-19 14:38] LABS: Benzodiazephine Screen, Urine Neg (NEGATIVE); Cocaine Screen, Urine Neg (NEGATIVE)
--- NOTE | 2024-08-19 16:42 | DVHSR ---
APPROVED REPORT EXAM: Two-dimensional and M-mode echocardiogram with Doppler, color Doppler and Bubble Study. Blood Pressure: 160/69 mmHg INDICATION Evaluate cardiac function RISK FACTORS Height: 5'9", Weight: 165 DIMENSIONS LVDd4.9 (3.8-5.7cm)LA (2D)4.3 (1.9-4.0cm)Aortic Root3.9 (2.0-3.7cm) LVDs4.0 (2.5-4.0cm)LA (MM) (1.9-4.0cm)Aortic Cusp Exc2.0 (1.5-2.0cm) EF (%) 40.0 (55-70%)Rt. Atrium4.9 (1.9-4.0cm)Asc. Aorta cm IVSd1.0 (0.7-1.1cm)RV (D)4.9 (1.8-2.4cm) PWd1.1 (0.7-1.1cm) Mitral Valve MitralMitral Stenosis E wave0.82m/sMV Mean GR.mmHg A wave0.39m/sMV Peak GR.mmHg E/A ratio2.12D MVAcm2 DECEL [id number] 1/2 [place] Aortic Valve Aortic ValveAortic Stenosis V10.80m/Donna Mean GR.4mmHg V21.31m/Donna Peak GR.7mmHg LVOT Diameter2.2 (1.8-2.4cm)Doppler AVA2.32cm2 AI P 1/2 [id number] Pulmonic Valve V20.78m/s Tricuspid Valve TR Velocity3.70m/s [id number] Conclusion mild LV dysfunction LVEF 45% by visual estimate mild LVH aortic sclerosis noted pacing lead in RV noted mild to moderate tricuspid regurg biatrial enlargement trivial pericardial effusio noted
[2024-08-19] MEDS: FUROSEMIDE 20 MG/2 ML VIAL IV SCH (18:00)
[2024-08-19 18:20] VITALS: BP 160/87; PULSE 64; RESP 18; TEMP 97.4; O2SAT 95
--- NOTE | 2024-08-19 18:33 | DVHPN2 ---
Subjective Seen and examined at bedside, patient is very well known to me from outpatient clinic. C/o Chest Pain and shortness of breath. Patient has a history of CAD with stent in Proximal RCA. Patient also has a PPM for SSS. LHC in AM. Changes from previous H/P or p: No Changes Objective Vitals Vital Signs Date Time Temp Pulse Resp B/P (MAP) Pulse Ox O2 Delivery O2 Flow Rate FiO2 08/19/24 18:00 70 16 168/82 (110) 99 08/19/24 08:00 Nasal Cannula* 2 28 08/19/24 08:00 98.7 98.7 General Appearance: Alert, Oriented X3, Cooperative, mild distress HEENT: Atraumatic Neck: Carotid [place] Lungs: Normal air movement Cardiovascular: Other (Irregular) Abdomen: Normal bowel sounds, Soft Psych/Mental Status: Mental status NL Medications Current Medications Medications Dose Ordered Sig/Noreen Route Start Time Stop Time Status Last Admin Dose Admin Aspirin 81 mg DAILY PO 08/19/24 10:00 08/19/24 09:43 81 MG Losartan Potassium 50 mg DAILY PO 08/19/24 10:00 08/19/24 09:45 50 MG Atorvastatin Calcium 40 mg HS PO 08/18/24 22:00 08/18/24 23:29 40 MG Amiodarone HCl 200 mg Q12HR PO 08/18/24 22:00 Hold Hydralazine HCl 10 mg Q6HP PRN IV 08/18/24 19:30 08/19/24 08:21 10 MG Ondansetron HCl 4 mg Q4HP PRN IV 08/18/24 19:30 08/19/24 01:04 4 MG Acetaminophen 650 mg Q6HP PRN PO 08/18/24 19:30 Nitroglycerin 0.4 mg Q5MINP PRN SL 08/18/24 19:30 Morphine Sulfate 2 mg Q30M PRN IV 08/18/24 19:30 08/19/24 01:03 2 MG Furosemide 20 mg BIDD IV 08/19/24 18:00 UNV Enoxaparin Sodium 80 mg Q12HR SC 08/20/24 22:00 UNV Amlodipine Besylate 10 mg DAILY PO 08/20/24 10:00 UNV Carvedilol 12.5 mg Q12HR PO 08/19/24 22:00 UNV Clonidine HCl 0.1 mg Q4HP PRN PO 08/19/24 18:15 UNV Laboratory Results Laboratory Tests 08/18/24 12:59 08/19/24 05:40 Chemistry Test 08/19/24 05:40 Calcium Level 9.6 mg/dL (8.7-10.4) Magnesium Level 2.0 mg/dL (1.6-2.6) Lipid panel Test 08/19/24 05:40 Cholesterol Level 132 mg/dL (< 200) HDL Cholesterol 65 mg/dL (40-59) H Triglycerides Level 58 mg/dL (< 150) HgA1c, TSH Test 08/19/24 05:40 Hemoglobin A1c 5.2 % A1C (<5.7) Thyroid Stimulating Hormone (TSH) 2.78 uIU/mL (0.55-4.78) Urinalysis Test 08/18/24 01:49 Urine Color Light-yellow (Yellow) Urine Clarity Clear (Clear) Urine pH 6.5 (5.0-9.0) Urine Specific [place] 1.013 (1.001-1.035) Urine Protein Trace (Negative) H Urine Ketones 1+ (Negative) H Urine Blood Negative /uL (Negative) Urine Nitrite Negative (Negative) Urine Bilirubin Negative (Negative) Urine Urobilinogen Normal mg/dL (Negative) Urine Leukocyte Esterase Negative /uL (Negative) Urine RBC 1 /hpf (0 - 3) Urine WBC None seen /hpf (0 - 3) Urine Squamous Epithelial Cells None seen /hpf (<5) Urine Bacteria None seen /hpf (None Seen) Urine Glucose Normal mg/dL (Normal) Assessment/Plan Assessment/Plan NSTEMI-I- Lovenox Subq, [facility] in AM Acute Systolic CHF Exacerbation- Lasix IV Status post pacemaker for SSS Hypertensive Heart Disease with Acute CHF Exacerbation- Monitor and adjust meds as needed Atrial fibrillation with secondary coagulopathy- Lovenox Subq Critical care time 45 mins Plan discussed with: Patient My Orders Orders - ROSLYN KEARNS MD Procedure Category Date Status Time Amlodipine Tablet PHA 08/20/24 Logged (Norvasc Tablet) 10:00 Carvedilol Tablet PHA 08/19/24 Logged (Coreg Tablet) 22:00 Clonidine Hcl Tablet PHA 08/19/24 Logged (Catapres Tablet) 18:15 Magnesium LAB 08/20/24 Verified 04:00 Date of Service: Aug 19, 2024 Billing Provider: ROSLYN KEARNS MD Common Visit Codes: [id number] CARE 30-74 MIN ROSLYN KEARNS MD Aug 19, 2024 18:33
[2024-08-19] MEDS ORDERED: FUROSEMIDE 20 MG/2 ML VIAL IV ONE (18:45)
[2024-08-19 19:07] VITALS: BP 160/87; PULSE 64; RESP 18; TEMP 97.4; O2SAT 95
[2024-08-19 20:00] VITALS: PULSE 64; PULSE 76; RESP 18; O2SAT 95
[2024-08-19 21:00] VITALS: BP 170/86; PULSE 67; RESP 18; TEMP 97.6; O2SAT 93
[2024-08-19] MEDS: ENOXAPARIN SOD 80 MG/0.8ML SYRINGE SC SCH (21:14)
[2024-08-19] MEDS: cloNIDine HCL 0.1 MG TAB PO PRN (22:31)
[2024-08-19] MEDS: CARVEDILOL 12.5 MG TAB PO SCH (22:33)
[2024-08-20] VITALS (10 sets, daily range): BP systolic 136–167; BP diastolic 69–96; PULSE 59–77; RESP 15–19; TEMP 97.5–98.2; O2SAT 97–100
[2024-08-20 06:27] LABS: Hematocrit 45.5 % (41.0-53.0); Hemoglobin 14.9 g/dL (13.5-17.5); Mean Corpuscular Hemoglobin 30.9 pg (28.0-32.0); Mean Corpuscular Hgb Conc. 32.7 g/dL (32.0-36.0); Mean Corpuscular Volume 94.6 fL (80.0-100.0); Platelet Count (auto) 81 10^3/uL (140-450); Red Blood Cells 4.81 10^6/uL (4.5-5.90); Red Cell Distribution Width 17.2 % (11.8-14.3); White Blood Cell 3.7 10^3/uL (4.4-10.8)
[2024-08-20 06:29] LABS: Chloride 105 mmol/L (98-107); Potassium 3.7 mmol/L (3.5-5.1); Sodium 140 mmol/L (136-145)
[2024-08-20 06:30] LABS: Anion Gap 7 (5-15); Calcium 9.8 mg/dL (8.7-10.4); Carbon Dioxide 28 mmol/L (20-31)
[2024-08-20 06:32] LABS: INR 1.22 (0.9-1.15); Partial Thromboplastin Time 31.1 SEC (24.5-34.5); Prothrombin Time 12.7 sec (9.3-11.8)
[2024-08-20 06:35] LABS: Blood Urea Nitrogen 13 mg/dL (9-23); Glucose 93 mg/dL (74-106); Magnesium 1.7 mg/dL (1.6-2.6)
[2024-08-20 07:11] LABS: Basophils % (manual) 0 (0.0-2.0); Blast Cells 0; Metamyelocytes % 0; Myelocytes % 0; Promyelocytes % 0; Reactive Lymphocytes 0
[2024-08-20 08:12] LABS: Band Neutrophils % (manual) 1; Eosinophils % (manual) 1 (0-7); Lymphocytes % (manual) 40 (10.0-50.0); Monocytes % (manual) 14 (0-12)
[2024-08-20 08:13] LABS: Platelet Estimate Decreased
[2024-08-20] MEDS ORDERED: FUROSEMIDE 20 MG/2 ML VIAL IV SCH (10:00)
[2024-08-20] MEDS: amLODIPine BESYLATE 5 MG TAB PO SCH (10:26)
--- NOTE | 2024-08-20 15:20 | ECG ---
[facility] Test Date: 2024-08-18 Test Time: 14:05:35 Pat Name: COLE UMAÑA Department: ER Room: 0207T A Gender: M Resistor Tester: MICHAEL : [id number] Requested By: JEROME GRIMES Order Number: [id number] Reading MD: Ron Greer Measurements Intervals [place] Rate: 72 P: 0 MN: 0 QRS: 257 QRSD: 98 T: 262 QT: 533 QTc: 584 Interpretive Statements Afib/flut and V-paced complexes No further analysis attempted due to paced rhythm Electronically Signed On 08-21-2024 10:17:12 PST by Ron Greer Please click the below link to view image of tracing.
--- NOTE | 2024-08-20 16:33 | DVHPN2 ---
Subjective in [facility] Changes from previous H/P or p: No Changes Objective Vitals Vital Signs Date Time Temp Pulse Resp B/P (MAP) Pulse Ox O2 Delivery O2 Flow Rate FiO2 08/20/24 14:03 158/84 08/20/24 13:00 68 08/20/24 09:00 98.1 18 100 98.1 08/20/24 08:00 Nasal Cannula* 2 28 Intake/Output Intake and Output 08/20/24 07:00 Intake Total 160 ml Output Total 1580 ml Balance -1420 ml Intake Oral 160 ml Output Urine Total 1580 ml General Appearance: Alert, Oriented X3, Cooperative, mild distress HEENT: Atraumatic Neck: Carotid [place] Lungs: Normal air movement Cardiovascular: Other (Irregular) Abdomen: Normal bowel sounds, Soft Psych/Mental Status: Mental status NL Medications Current Medications Medications Dose Ordered Sig/Noreen Route Start Time Stop Time Status Last Admin Dose Admin Aspirin 81 mg DAILY PO 08/19/24 10:00 08/19/24 09:43 81 MG Losartan Potassium 50 mg DAILY PO 08/19/24 10:00 08/20/24 10:25 50 MG Atorvastatin Calcium 40 mg HS PO 08/18/24 22:00 08/19/24 22:30 40 MG Amiodarone HCl 200 mg Q12HR PO 08/18/24 22:00 Hold Ondansetron HCl 4 mg Q4HP PRN IV 08/18/24 19:30 08/19/24 01:04 4 MG Acetaminophen 650 mg Q6HP PRN PO 08/18/24 19:30 Nitroglycerin 0.4 mg Q5MINP PRN SL 08/18/24 19:30 Morphine Sulfate 2 mg Q30M PRN IV 08/18/24 19:30 08/19/24 01:03 2 MG Furosemide 20 mg BIDD IV 08/19/24 18:00 Enoxaparin Sodium 80 mg Q12HR SC 08/19/24 22:00 Amlodipine Besylate 10 mg DAILY PO 08/20/24 10:00 08/20/24 10:26 10 MG Carvedilol 12.5 mg Q12HR PO 08/19/24 22:00 08/20/24 10:25 12.5 MG Clonidine HCl 0.1 mg Q4HP PRN PO 08/19/24 18:15 08/20/24 14:03 0.1 MG Laboratory Results Laboratory Tests 08/20/24 05:09 Chemistry Test 08/20/24 05:09 Calcium Level 9.8 mg/dL (8.7-10.4) Magnesium Level 1.7 mg/dL (1.6-2.6) Coagulation Test 08/20/24 05:09 Prothrombin Time 12.7 sec (9.3-11.8) H Prothrombin Time INR 1.22 (0.9-1.15) H Activated Partial Thromboplast Time 31.1 SEC (24.5-34.5) Urinalysis Test 08/18/24 01:49 Urine Color Light-yellow (Yellow) Urine Clarity Clear (Clear) Urine pH 6.5 (5.0-9.0) Urine Specific [place] 1.013 (1.001-1.035) Urine Protein Trace (Negative) H Urine Ketones 1+ (Negative) H Urine Blood Negative /uL (Negative) Urine Nitrite Negative (Negative) Urine Bilirubin Negative (Negative) Urine Urobilinogen Normal mg/dL (Negative) Urine Leukocyte Esterase Negative /uL (Negative) Urine RBC 1 /hpf (0 - 3) Urine WBC None seen /hpf (0 - 3) Urine Squamous Epithelial Cells None seen /hpf (<5) Urine Bacteria None seen /hpf (None Seen) Urine Glucose Normal mg/dL (Normal) Assessment/Plan Assessment/Plan NSTEMI-I- Lovenox Subq, [facility] Acute Systolic CHF Exacerbation- Lasix IV Status post pacemaker for SSS Hypertensive Heart Disease with Acute CHF Exacerbation- Monitor and adjust meds as needed Atrial fibrillation with secondary coagulopathy- Lovenox Subq Plan discussed with: Other My Orders Orders - ROSLYN KEARNS MD Procedure Category Date Status Time Amlodipine Tablet PHA 08/20/24 In Process (Norvasc Tablet) 10:00 Carvedilol Tablet PHA 08/19/24 In Process (Coreg Tablet) 22:00 Clonidine Hcl Tablet PHA 08/19/24 In Process (Catapres Tablet) 18:15 Date of Service: Aug 20, 2024 Billing Provider: ROSLYN KEARNS MD Common Visit Codes: 47513-[id number] INP/OBS CARE(HIGH) ROSLYN KEARNS MD Aug 20, 2024 16:33
[2024-08-20] MEDS: ANGIOMAX 250 MG VIAL IV ONE (16:52)
[2024-08-20] MEDS: HEPARIN SODIUM (PORCINE) 5000 UNITS/ML 1ML VIAL ONE (16:52)
[2024-08-20] MEDS: MIDAZOLAM HCL 2MG/2ML 2ml VIAL (1mg/ml) ONE (16:53)
[2024-08-20] MEDS: LIDOCAINE 2%HCL (LOCAL ANESTH.) INJ 20ML MDV ONE (16:53)
[2024-08-20] MEDS: VERAPAMIL 2.5MG/ML INJ 2ML VIAL IV ONE (16:53)
[2024-08-20] MEDS: fentaNYL CITRATE 100 MCG/2 ML VL ONE (16:53)
--- NOTE | 2024-08-20 17:44 | DVHOP2 ---
Operative Report - 2 Report Details Date: 08/20/24 Preop Diagnosis: CAD Postop Diagnosis: Normal coronary arteries. Mild cardiomyopathy. Surgeon: Gary Greer MD Anesthesiologist: Conscious sedation Anesthesia: Mac, Local Consent: The patient was informed of the risks and benefits of the procedure. These include but are not limited to complications of anesthesia, postoperative infection, incomplete relief of symptoms, recurrence of symptoms, damage to blood vessels, nerves and tendons, deep venous thrombosis, pulmonary embolism and possible need for repeat surgery in the future. Complications: No complications Findings: No CAD. Mild cardiomyopathy Indications for Surgery: Chest pain. Positive troponins. Name of Procedure Performed Left heart catheterization bilateral cine coronary angiography. Left ventriculography. Procedure Details Procedure Details: Prior local anesthesia with 2% lidocaine to the right wrist full informed consent obtained patient was prepped and draped usual fashion followed by placement of six [place] sheath into the radial artery. We then placed a tiger catheter 110 cm and placed into the left ventricle and obtained ventriculography. We then cannulated both the left coronary ostia without complications. Hemodynamics: Aortic blood pressure was 130/80. End-diastolic pressure was 18. There was no gradient across the aortic valve on pullback. Coronary anatomy: The RCA is a large nondominant vessel. In his normal in its proximal mid and distal segments. Left main is large and normal. Left anterior descending is large normal with two diagonals free of significant disease. The circumflex is large with two marginals free of significant disease. Ventriculography in the CHRISTENSEN projection shows an EF of 40% with mild global hypokinesis. Impression: decreased left ventricular ejection fraction. Normal end-diastolic pressure. Normal coronary arteries. Recommendations: Continue risk factor modification, medical therapy is warranted. Condition Fair Disposition Still a Patient Date of Service: Aug 20, 2024 Billing Provider: GARY GREER Sr., MD Cardiology Common Codes: 71271-[id number] INP/OBS CARE (High) Cardiology Procedure Codes: 46919-ZPZR HEART CATH W/INTRA INJ GARY GREER Sr., MD Aug 20, 2024 17:44
[2024-08-20] MEDS ORDERED: LOSA-534 PO (18:04)
[2024-08-20] MEDS ORDERED: AMLO1TAB23 PO (18:04)
[2024-08-20] MEDS ORDERED: FINA5TAB4 PO (18:04)
[2024-08-20] MEDS ORDERED: CLOP75TA28 PO (18:04)
[2024-08-20] MEDS ORDERED: TAMS0.4C39 PO (18:04)
[2024-08-20] MEDS ORDERED: AMIO200T33 PO (18:04)
[2024-08-20] MEDS ORDERED: ATOR-507 PO (18:04)
[2024-08-20] MEDS ORDERED: APIX2.5T PO (18:04)
--- NOTE | 2024-08-20 18:06 | DVHDS2 ---
Discharge Summary Date of Admission Aug 18, 2024 at 19:26 Date of Discharge: Aug 20, 2024 Admitting Diagnosis NSTEMI Labs/Diagnostic Data: Laboratory Results Test 08/20/24 05:09 08/19/24 13:59 08/19/24 05:40 08/18/24 16:17 White Blood Count 3.7 10^3/uL (4.4-10.8) Red Blood Count 4.81 10^6/uL (4.5-5.90) Hemoglobin 14.9 g/dL (13.5-17.5) Hematocrit 45.5 % (41.0-53.0) Mean Corpuscular Volume 94.6 fL (80.0-100.0) Mean Corpuscular Hemoglobin 30.9 pg (28.0-32.0) Mean Corpuscular Hemoglobin Concent 32.7 g/dL (32.0-36.0) Red Cell Distribution Width 17.2 % (11.8-14.3) Platelet Count 81 10^3/uL (140-450) Mean Platelet Volume 10.5 fL (6.9-10.8) Neutrophils (%) (Auto) % (37.0-80.0) Lymphocytes (%) (Auto) % (10.0-50.0) Monocytes (%) (Auto) % (0.0-12.0) Basophils (%) (Auto) % (0.0-2.0) Neutrophils # (Auto) 10 ^3/uL (1.6-8.6) Lymphocytes # (Auto) 10 ^3/uL (0.4-5.4) Monocytes # (Auto) 10 ^3/uL (0-1.3) Differential Total Cells Counted 100.0 (100) Neutrophils % (Manual) 44 (37.0-80.0) Band Neutrophils % (Manual) 1 Lymphocytes % (Manual) 40 (10.0-50.0) Monocytes % (Manual) 14 (0-12) Eosinophils % (Manual) 1 (0-7) Basophils % (Manual) 0 (0.0-2.0) Metamyelocytes % (manual) 0 Myelocytes % (Manual) 0 Promyelocytes % (Manual) 0 Blast Cells % (Manual) 0 Reactive Lymphocytes 0 Platelet Estimate Decreased Prothrombin Time 12.7 sec (9.3-11.8) Prothrombin Time INR 1.22 (0.9-1.15) Activated Partial Thromboplast Time 31.1 SEC (24.5-34.5) Sodium Level 140 mmol/L (136-145) Potassium Level 3.7 mmol/L (3.5-5.1) Chloride Level 105 mmol/L (98-107) Carbon Dioxide Level 28 mmol/L (20-31) Anion Gap 7 (5-15) Blood Urea Nitrogen 13 mg/dL (9-23) Creatinine 1.30 mg/dL (0.700-1.30) Glomerular Filtration Rate Calc 53 mL/min (>90) BUN/Creatinine Ratio 10.0 (10.0-20.0) Serum Glucose 93 mg/dL (74-106) Calcium Level 9.8 mg/dL (8.7-10.4) Magnesium Level 1.7 mg/dL (1.6-2.6) Urine Opiates Screen Neg (NEGATIVE) Urine Fentanyl Screen Neg (NEGATIVE) Urine Barbiturates Screen Neg (NEGATIVE) Urine Phencyclidine Screen Neg (NEGATIVE) Urine Amphetamines Screen Neg (NEGATIVE) Urine Benzodiazepines Screen Neg (NEGATIVE) Urine Cocaine Screen Neg (NEGATIVE) Urine Cannabinoids Screen Pos (NEGATIVE) Hemoglobin A1c 5.2 % A1C (<5.7) Triglycerides Level 58 mg/dL (< 150) Cholesterol Level 132 mg/dL (< 200) LDL Cholesterol 57 mg/dL (< 100) HDL Cholesterol 65 mg/dL (40-59) Thyroid Stimulating Hormone (TSH) 2.78 uIU/mL (0.55-4.78) Troponin I High Sensitivity 108 ng/L (</=54) Test 08/18/24 12:59 08/18/24 01:49 Large Platelets Few Giant Platelets Total Bilirubin 0.8 mg/dL (0.2-1.0) Aspartate Amino Transferase (AST) 29 U/L (13-40) Alanine Aminotransferase (ALT) < 9 U/L (7-40) Alkaline Phosphatase 86 U/L (46-116) B-Type Natriuretic Peptide 1323.00 pg/mL (0-100) Total Protein 8.4 g/dL (5.7-8.2) Albumin 4.0 g/dL (3.2-4.8) Urine Color Light-yellow (Yellow) Urine Clarity Clear (Clear) Urine pH 6.5 (5.0-9.0) Urine Specific [place] 1.013 (1.001-1.035) Urine Protein Trace (Negative) Urine Ketones 1+ (Negative) Urine Blood Negative /uL (Negative) Urine Nitrite Negative (Negative) Urine Bilirubin Negative (Negative) Urine Urobilinogen Normal mg/dL (Negative) Urine Leukocyte Esterase Negative /uL (Negative) Urine RBC 1 /hpf (0 - 3) Urine WBC None seen /hpf (0 - 3) Urine Squamous Epithelial Cells None seen /hpf (<5) Urine Bacteria None seen /hpf (None Seen) Urine Glucose Normal mg/dL (Normal) Other Laboratory Tests 08/20/24 05:09 Brief Hx & Hospital Course: This is an 89-year-old male patient who presents to the emergency room with chief complaint of shortness of breath and chest pain. The patient reports that the shortness of breath began approximately two weeks ago. He reports that the chest pain began approximately one week ago. He describes the chest pain as unprovoked, pressure-like in nature, intermittent, left-sided and without radiation. Cardiology has now been consulted for further evaluation. Initial twelve lead electrocardiogram reveals paced rhythm with underlying atrial fibrillation. Initial troponin level of 99ng/L with flat trend thereafter. Initial BNP level of 1323.00pg/mL. Significant past medical history includes congestive heart failure, coronary artery disease status post PTCA x1 KRISTEL (on ASA), sick sinus syndrome status post dual-chamber permanent pacemaker (Biotronik), atrial fibrillation (on low-dose Eliquis), hypertension, chronic kidney disease, and previous tobacco use. Of significance, the patient reports running out of his medications over a week ago. He reports he has been unable to refill his medications and has not taken any of his prescribed medications for over one week since he ran out. 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 Greer in the outpatient setting. Patient was seen in Cardiology consult with Dr. Greer, since patient was complaining of chest pain with known history of CAD, patient taken for Left Heart Cath with no interventions needed. Patient will be discharged home to followup with me. Operations or Procedures Report Details Date: 08/20/24 Preop Diagnosis: CAD Postop Diagnosis: Normal coronary arteries. Mild cardiomyopathy. Surgeon: Ron Greer MD Anesthesiologist: Conscious sedation Anesthesia: Mac, Local Consent: The patient was informed of the risks and benefits of the procedure. These include but are not limited to complications of anesthesia, postoperative infection, incomplete relief of symptoms, recurrence of symptoms, damage to blood vessels, nerves and tendons, deep venous thrombosis, pulmonary embolism and possible need for repeat surgery in the future. Complications: No complications Findings: No CAD. Mild cardiomyopathy Indications for Surgery: Chest pain. Positive troponins. Name of Procedure Performed Left heart catheterization bilateral cine coronary angiography. Left ventriculography. Procedure Details Procedure Details: Prior local anesthesia with 2% lidocaine to the right wrist full informed consent obtained patient was prepped and draped usual fashion followed by placement of six [place] sheath into the radial artery. We then placed a tiger catheter 110 cm and placed into the left ventricle and obtained ventriculography. We then cannulated both the left coronary ostia without complications. Hemodynamics: Aortic blood pressure was 130/80. End-diastolic pressure was 18. There was no gradient across the aortic valve on pullback. Coronary anatomy: The RCA is a large nondominant vessel. In his normal in its proximal mid and distal segments. Left main is large and normal. Left anterior descending is large normal with two diagonals free of significant disease. The circumflex is large with two marginals free of significant disease. Ventriculography in the [place]RIST[place] projection shows an EF of 40% with mild global hypokinesis. Impression: decreased left ventricular ejection fraction. Normal end-diastolic pressure. Normal coronary arteries. Recommendations: Continue risk factor modification, medical therapy is warranted. Condition at Discharge: Fair Final Diagnosis/Problems List NSTEMI-I- Acute Systolic CHF Exacerbation Status post pacemaker for SSS Hypertensive Heart Disease with Acute CHF Exacerbation- Monitor and adjust meds as needed Atrial fibrillation with secondary coagulopathy Discharge Disposition: Home Discharge Instruct/Medications Diet: Cardiac 2g Na,low cholest (2 gm sodium, low cholesterol) Activity: Light activity Follow Up/Referral: Dr. Kearns in 2 weeks Medications: Resume Home meds Discharge Statement: "Patient was advised to return to the ER or call 911 if any headaches, dizziness, shortness of breath, chest pain, abdominal pain, bleeding, fevers, or worsening of medical condition. Patient was counseled about treatment plan, medications, possible side effects, patientverbalized understanding. All questions were answered to the best of my ability. This discharge took greater then 30 minutes in planning, reviewing documentation, counseling the patient, and discussing with other team members." ASSESSMENT ASSESSMENT Assessment Normal coronary arteries. Mild cardiomyopathy. Date of Service: Aug 20, 2024 Billing Provider: ROSLYN KEARNS MD Common Visit Codes: 70093-QKW/OBS DISCH DAY >30min ROSLYN KEARNS MD Aug 20, 2024 18:06
[2024-08-21 01:00] VITALS: BP 140/77; PULSE 60; RESP 19; TEMP 97.6; O2SAT 100
[2024-08-21 04:43] VITALS: BP 144/86; PULSE 68; RESP 17; TEMP 98.2; O2SAT 99
[2024-08-21 05:03] VITALS: BP 144/86; PULSE 68; RESP 17; TEMP 98.2; O2SAT 99
[2024-08-21 08:00] VITALS: PULSE 60; RESP 20; O2SAT 97
[2024-08-21 08:51] VITALS: BP 158/83; PULSE 60; RESP 20; TEMP 98.1; O2SAT 98
== END 2024-08-21 10:30 | disposition home or self-care (01) | DRG 280 ==
LOC: ER 12:44 → TELE 19:26 → TELE-CENTR 08-19 18:30
PROVIDERS: ADMIT Internal Medicine; ATTEND Internal Medicine
PROC: 4A023N7 Measurement of Cardiac Sampling and Pressure, Left Heart, Percutaneous Approach (ICD-10-PCS; principal; 2024-08-20)
PROC: B2111ZZ Fluoroscopy of Multiple Coronary Arteries using Low Osmolar Contrast (ICD-10-PCS; 2024-08-20)
PROC: B2151ZZ Fluoroscopy of Left Heart using Low Osmolar Contrast (ICD-10-PCS; 2024-08-20)
DX: I21.4 Non-ST elevation (NSTEMI) myocardial infarction (principal); I50.23 Acute on chronic systolic (congestive) heart failure; D68.9 Coagulation defect, unspecified; I13.0 Hypertensive heart and chronic kidney disease with heart failure and stage 1 through stage 4 chronic kidney disease, or unspecified chronic kidney disease; I42.9 Cardiomyopathy, unspecified; I25.10 Atherosclerotic heart disease of native coronary artery without angina pectoris; I49.5 Sick sinus syndrome; N18.9 Chronic kidney disease, unspecified; E78.5 Hyperlipidemia, unspecified; I48.91 Unspecified atrial fibrillation; Z87.11 Personal history of peptic ulcer disease; Z95.0 Presence of cardiac pacemaker; Z87.891 Personal history of nicotine dependence; Z79.899 Other long term (current) drug therapy; Z90.49 Acquired absence of other specified parts of digestive tract; Z91.199 Patient's noncompliance with other medical treatment and regimen due to unspecified reason
CPT/HCPCS: 36415; 71045; 80048; 80053; 80061; 80307; 81001; 83036; 83735; 83880; 84443; 84484; 85007; 85027; 85610; 85730; 93005; 93306; 93458; 99152; 99291; G0378; J2250; J2405